=== PATIENT | female | born 1975 | race Caucasian/White ===

== ENCOUNTER 2018-05-30 11:24 | Emergency (ER) | payer MEDICAID ==
[2018-05-30] MEDS ORDERED: TORAdol 30 mg Injection IM ONE (12:08)
--- NOTE | 2018-05-30 12:08 | ERPHSYRPT ---
- History of Present Illness Time Seen by Provider: 05/30/18 12:03 Source: patient, family Exam Limitations: no limitations Patient Subjective Stated Complaint: fell 2 weeks ago onto an outstretched right arm.. pain in right shoulder.. now has pai9n in right rib and shoulder after coughing since yesterday.. prodictve scant amount. no recent injury.. pain with movement and breathing Triage Nursing Assessment: alert and oriented. fell 2 week ago onto a outstretched right arm.. now has pain in right ribs after coughing yesterday.. pain with breathing and movement. lungs clear. denies fever. scant productive cought. denies fever. Physician History: The patient is a 42 year old right-handed female with her complaining of right upper rib pain that began suddenly as she was coughing 2 or 3 days ago. She denies being short of breath. She claims it hurts when she coughs and when she lifts things with her right arm. About 2 weeks ago she fell on her outstretched right arm hurting her right shoulder but not her right ribs. Her right shoulder has been feeling better. She has been taking naproxen to help ease the pain of her ribs but it has not helped much. 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 Timing/Duration: day(s) (3), constant, sudden Cough Quality/Degree: moderate, dry cough Possible Cause: occasional episodes Modifying Factors: Improves With: nothing Associated Symptoms: cough Allergies/Adverse Reactions: erythromycin base Allergy (Unknown, Verified 05/30/18 12:10) Penicillins Allergy (Unknown, Verified 05/30/18 12:10) - Review of Systems Constitutional: No Fever, No Chills Eyes: No Symptoms Ears, Nose, & Throat: No Symptoms Respiratory: Cough Cardiac: Chest Pain (with cough) Abdominal/Gastrointestinal: No Abdominal Pain, No Nausea, No Vomiting, No Diarrhea Genitourinary Symptoms: No Dysuria Musculoskeletal: No Back Pain, No Neck Pain Skin: No Rash Neurological: No Dizziness, No Focal Weakness, No Sensory Changes Psychological: No Symptoms Endocrine: No Symptoms Hematologic/Lymphatic: No Symptoms Immunological/Allergic: No Symptoms All Other Systems: Reviewed and Negative - Past Medical History Pertinent Past Medical History: Yes Respiratory History: Bronchitis, Pneumonia - Past Surgical History Past Surgical History: Yes Gastrointestinal: Cholecystectomy Female Surgical History: Hysterectomy - Social History Smoking Status: Current every day smoker Exposure to second hand smoke: No Drug Use: marijuana Patient Lives Alone: No - Female History Hx Now: No - Nursing Vital Signs Nursing Vital Signs: Initial Vital Signs Temperature 97.9 F 05/30/18 11:41 Pulse Rate 92 H 05/30/18 11:41 Respiratory Rate 18 05/30/18 11:41 Blood Pressure 136/108 05/30/18 11:41 O2 Sat by Pulse Oximetry 99 05/30/18 11:41 Pain Scale Pain Intensity 7 - Physical Exam General Appearance: mild distress Eye Exam: PERRL/EOMI, eyes nml inspection Ears, Nose, Throat Exam: normal ENT inspection, TMs normal, pharynx normal, moist mucous membranes Neck Exam: normal inspection, non-tender, supple, full range of motion Respiratory Exam: normal breath sounds, chest tenderness (upper right anterior ribs) Cardiovascular Exam: regular rate/rhythm, normal heart sounds Gastrointestinal/Abdomen Exam: soft, No tenderness Pelvic Exam: not done Rectal Exam: not done Back Exam: normal inspection, No CVA tenderness, No vertebral tenderness Extremity Exam: normal inspection, normal range of motion Neurologic Exam: alert, oriented x 3, cooperative, normal mood/affect, sensation nml, No motor deficits Skin Exam: normal color, warm, dry, No rash Lymphatic Exam: No adenopathy SpO2 Interpretation: normal SpO2: 99 O2 Delivery: Room Air - Radiology Exams Chest X-ray Interpretation: Reviewed by me, Teleradiologist Report (per Dr Grimm), Negative, No Fracture, No Pneumonia, No Pneumothorax, No Infiltrates Ribs X-ray Interpretation: Reviewed by me, Teleradiologist Report (per Dr Grimm), Negative, No Fracture, No Pneumothorax Ordered Tests: Active Orders 24 hr Category Date Time Status CHEST 2 VIEWS (PA AND LAT) Stat Exams 05/30/18 12:08 Completed RIBS UNILATERAL Stat Exams 05/30/18 12:09 Completed Medication Summary Discontinued Medications Generic Name Dose Route Start Last Admin Trade Name Freq PRN Reason Stop Dose Admin Ketorolac Tromethamine 60 mg 05/30/18 12:08 05/30/18 12:31 Toradol 30 Mg Injection IM 05/30/18 12:09 60 mg STAT ONE Administration Ketorolac Tromethamine Confirm 05/30/18 12:29 Toradol 30 Mg Injection Administered 05/30/18 12:30 Dose 60 mg .ROUTE .STK-MED ONE - Progress Progress: improved Air Movement: good Blood Culture(s) Obtained: No Antibiotics given: No - Departure Time of Disposition: 12:59 Departure Disposition: Home Clinical Impression: Muscle strain of anterior chest wall Condition: Stable Critical Care Time: No Referrals: ELIZABETH NIELSEN MAINTENANCE CHIEF [Primary Care Provider] - Additional Instructions: You have pulled/strained muscles in your right upper chest. You were given Toradol 60 mg by IM in the ER. Your chest x-ray and rib x-rays were normal. Take naproxen 500 mg 2 times a day as needed for pain. You may also take Tylenol 1000 mg every 8 hours in addition to the naproxen. Take Tessalon Perle 100 mg every 8 hours as needed for cough. Follow-up with your primary medical doctor as needed. Prescriptions: Benzonatate [Tessalon Perle] 100 mg PO Q8H PRN PRN #12 capsule PRN Reason: Cough Naproxen 500 mg [Naprosyn 500 MG] 500 mg PO BIDPRN PRN #30 tablet MDD 2 PRN Reason: Pain
[2018-05-30] MEDS ORDERED: TORAdol 30 mg Injection ONE (12:29)
--- NOTE | 2018-05-30 12:47 | XRAY ---
Indication: Pain following fall one week ago. Comparison: None 2 views of the right ribs obtained. No bony, articular, or soft tissue abnormalities.
--- NOTE | 2018-05-30 12:47 | XRAY ---
Indication: Right rib pain following fall one week ago. Comparison: None PA/lateral chest demonstrates normal heart, lungs, and bony thorax.
[2018-05-30 13:22] VITALS: BP 133/101; PULSE 83; O2SAT 96
== END 2018-05-30 13:22 | disposition home or self-care (01) ==
LOC: ED 11:24
DX: S39.011A Strain of muscle, fascia and tendon of abdomen, initial encounter (principal); W18.30XS Fall on same level, unspecified, sequela; R07.89 Other chest pain; Z72.0 Tobacco use; M25.511 Pain in right shoulder
CPT/HCPCS: 71046; 71100; 96372; 99284; J1885

== ENCOUNTER 2019-08-05 13:48 | Emergency (ER) | payer MEDICAID ==
[2019-08-05] MEDS ORDERED: TORAdol 30 mg Injection IV ONE (14:11)
--- NOTE | 2019-08-05 14:19 | ERPHSYRPT ---
- History of Present Illness Time Seen by Provider: 08/05/19 14:00 Source: patient Exam Limitations: no limitations Patient Subjective Stated Complaint: Pt had the flu 06/30 and continues to have a cough that is not as bad as it was but she thinks that she may have cracked a rib from all of the coughing, pain began about 1.5 weeks ago, pain below the right breast that extends to the lateral side, pain does not radiate, pain with palpatation Triage Nursing Assessment: Pt brought self to the ER, hypertensive, clear sputum with cough, rates pain in ribs 6/10, pulses normal, uncomfortable to sleep, denies falling, denies injury, lungs clear equal and clari Physician History: The patient is a 43-year-old female who presents with a chief complaint of right -sided chest pain that is been present for the past week. She states that she suffered from a flulike illness on June 30 which consisted of a cough that reportedly was productive but has since started to resolve. She denies having fever, chills but endorsed having some sinus congestion. The patient denies sore throat, nausea, vomiting, diaphoresis, night sweats, diarrhea as well as constipation. She denies hemoptysis, history of DVT/PE, history of no malignancy, recent immobilization, recent international travel or recent surgeries. She is not taking estrogen supplement. She has a history of opiate abuse and is a recovering addict and states that she has a history of fibromyalgia in addition to a prior right left tibial plateau fracture and left foot and ankle fracture causing her to have chronic swelling of the left lower leg. She has not taken any medications for the pain and last night she reports that she was unable to sleep because whenever she lies on her right side the pain becomes worse. She described the pain as a sharp pain that increases whenever she takes a deep breath that is nonradiating constant. The pain increases with palpation and she states when someone presses on her chest and feels as if she has a "burning sensation." Timing/Duration: week(s) (1) Severity: mild Associated Symptoms: cough, chest pain, No denies symptoms, No nausea, No vomiting, No abdominal pain, No fever, No headaches, No malaise, No rash, No syncope Allergies/Adverse Reactions: erythromycin base Allergy (Unknown, Verified 05/30/18 12:10) Penicillins Allergy (Unknown, Verified 08/05/19 14:06) Travel Risk - International Travel Have you traveled outside of the country in past 3 weeks: No Have you or anyone close to you been diagnosed with or: No Do your reside in a community with a known COVID-19 case?: Yes If Yes where:: [place] - Coronavirus Screening Has patient experienced Coronavirus symptoms: No - Review of Systems Constitutional: No Fever, No Chills Eyes: No Symptoms Ears, Nose, & Throat: No Symptoms, Nose Congestion, No Throat Swelling, No Hoarse Respiratory: Cough, Dyspnea Cardiac: Chest Pain Abdominal/Gastrointestinal: No Symptoms, No Nausea, No Vomiting Genitourinary Symptoms: No Symptoms Skin: No Symptoms Neurological: No Symptoms Psychological: No Symptoms Endocrine: No Symptoms Hematologic/Lymphatic: No Symptoms Immunological/Allergic: No Symptoms All Other Systems: Reviewed and Negative - Past Medical History Pertinent Past Medical History: Yes Respiratory History: Bronchitis, Pneumonia - Past Surgical History Past Surgical History: Yes Gastrointestinal: Cholecystectomy Musculoskeletal: Orthopedic Surgery Female Surgical History: Hysterectomy, Tubal Ligation Other Surgical History: left leg surgery due to a fracture - Social History Smoking Status: Current every day smoker How long have you smoked: 20+ years Exposure to second hand smoke: Yes Drug Use: marijuana Patient Lives Alone: No - Female History Hx Now: No (hysterectomy) - Nursing Vital Signs Nursing Vital Signs: Initial Vital Signs Temperature 98.1 F 08/05/19 13:54 Pulse Rate 81 08/05/19 13:54 Blood Pressure 152/102 08/05/19 13:54 O2 Sat by Pulse Oximetry 99 08/05/19 13:54 Pain Scale Pain Intensity 4 - Physical Exam General Appearance: no apparent distress, alert Eye Exam: PERRL/EOMI Ears, Nose, Throat Exam: normal ENT inspection, pharynx normal, dry mucous membranes, No pharyngeal erythema, No tonsillar exudate Neck Exam: normal inspection, non-tender, supple Respiratory Exam: normal breath sounds, chest tenderness (Tenderness to R axillary region. No evidence of zoster rash), lungs clear, airway intact, No respiratory distress, No accessory muscle use, No pleural rub Cardiovascular Exam: regular rate/rhythm, normal heart sounds, normal peripheral pulses, capillary refill <2 sec, edema (The left lower extermity appeared to be asymmetrically swollen compared to the right, trace edema), No murmur, No friction rub, No gallop Gastrointestinal/Abdomen Exam: soft, No tenderness (Specifically with no RUQ tenderness and negative Larsen), No rebound Pelvic Exam: not done Rectal Exam: deferred Back Exam: normal inspection Extremity Exam: other (The left lower extermity appeared to be asymmetrically swollen compared to the right, trace edema) Neurologic Exam: alert, oriented x 3 Skin Exam: normal color, warm, dry, No rash, No petechiae SpO2 Interpretation: normal SpO2: 99 O2 Delivery: Room Air - Course Nursing assessment & vital signs reviewed: Yes EKG Interpreted by Me: RATE, Sinus Rhythm, NORMAL AXIS, NORMAL INTERVALS, NORMAL QRS, NORMAL ST-T - Radiology Exams Chest X-ray Interpretation: Reviewed by me, Negative Ordered Tests: Active Orders 24 hr Category Date Time Status EKG-ER Only STAT Care 08/05/19 14:10 Active IV Insertion STAT Care 08/05/19 14:10 Active CHEST 2 VIEWS (PA AND LAT) Stat Exams 08/05/19 14:26 Completed BMP Stat Lab 08/05/19 14:15 Completed CBC W DIFF Stat Lab 08/05/19 14:15 Completed D-DIMER QUANTITATIVE Stat Lab 08/05/19 14:15 Completed TROPONIN Stat Lab 08/05/19 14:15 Completed Medication Summary Discontinued Medications Generic Name Dose Route Start Last Admin Trade Name [place] PRN Reason Stop Dose Admin Ketorolac Tromethamine 15 mg 08/05/19 14:11 08/05/19 14:26 Toradol 30 Mg Injection IV 08/05/19 14:12 15 mg STAT ONE Administration Ketorolac Tromethamine Confirm 08/05/19 14:20 Toradol 30 Mg Injection Administered 08/05/19 14:21 Dose 30 mg .ROUTE .[employer]-RemitDATA ONE Lab/Rad Data: Laboratory Result Diagrams 08/05/19 14:15 08/05/19 14:15 Laboratory Results 08/05/19 08/05/19 08/05/19 Range/Units 14:15 14:15 14:15 WBC 9.3 (4.0-10.5) K/mm3 RBC 4.89 (4.1-5.4) M/mm3 Hgb 14.7 (12.0-16.0) gm/dl Hct 43.6 (35-47) % MCV 89.2 (78-100) fl MCH 30.1 (26-32) pg MCHC 33.7 (32-36) g/dl RDW 13.7 (11.5-14.0) % Plt Count 243 (150-450) K/mm3 MPV 11.0 (7.5-11.0) fl Gran % 50.2 (36.0-66.0) % Eos # (Auto) 0.22 (0-0.5) Absolute Lymphs (auto) 3.62 (1.0-4.6) Absolute Monos (auto) 0.74 (0.0-1.3) Lymphocytes % 39.1 (24.0-44.0) % Monocytes % 8.0 (0.0-12.0) % Eosinophils % 2.4 (0.00-5.0) % Basophils % 0.3 (0.0-0.4) % Absolute Granulocytes 4.64 (1.4-6.9) Basophils # 0.03 (0-0.4) D-Dimer < 215 L (215-500) ng/mL Sodium 143 (137-145) mmol/L Potassium 3.6 (3.5-5.1) mmol/L Chloride 108 H (98-107) mmol/L Carbon Dioxide 27 (22-30) mmol/L Anion Gap 11.7 (5-15) MEQ/L BUN 9 (7-17) mg/dL Creatinine 0.54 (0.52-1.04) mg/dL Estimated GFR > 60.0 ML/MIN Glucose 97 (74-106) mg/dL Calcium 9.4 (8.4-10.2) mg/dL Troponin I < 0.012 (0.000-0.034) ng/mL - Progress Progress: improved, re-examined Progress Note: 08/05/19 15:03 Assess the patient to find that she endorsed a little bit relief with Toradol. I updated her with her laboratory results and chest x-ray results. I currently think the patient is either suffering from a pulled chest wall muscle, pleurisy or possibly could have zoster without evidence of the rash however I feel this is very unlikely at this time. Only have a low gestalt for a pulmonary realism and given her low Wells score and a d-dimer that is on the limits my suspicion for a pulmonary embolism is low and I will defer CTA of her chest at this time. Only have a low suspicion for any ACS equivalent as well. Chest x-ray was ordered to rule out evidence of pneumothorax, pneumonia, pleural effusion and ultimately was negative for such and relatively benign. She will be discharged home with instructions to take ibuprofen scheduled and she was instructed to take ibuprofen with food. I also offered her lidocaine patches to use as a trial for pain relief. Otherwise, she was instructed to follow-up with her primary care provider as needed. She agreed with and verbally understood the discharge plan. Counseled pt/family regarding: lab results, diagnosis, need for follow-up, rad results - Departure Departure Disposition: Home Clinical Impression: Chest wall pain Condition: Good Critical Care Time: No Referrals: ELIZABETH NIELSEN PHYSICAL EDUCATION DEPARTMENT CHAIR [Primary Care Provider] - Instructions: Chest Pain That Is Not Caused by the Heart (DC) Prescriptions: Ibuprofen 400 mg PO Q6-8HPRN PRN #120 tablet PRN Reason: Pain And/Or Fever Lidocaine [Lidoderm] 1 each TP DAILY PRN PRN #20 adh..patch PRN Reason: Pain
[2019-08-05] MEDS ORDERED: TORAdol 30 mg Injection ONE (14:20)
[2019-08-05 14:27] LABS: Absolute Neutrophil Ct (ANC) 4.64 (1.4-6.9); BASOPHIL % 0.3 % (0.0-0.4); Basophil (Absolute #) 0.03 (0-0.4); Eosinophil % 2.4 % (0.00-5.0); Eosinophil (Absolute #) 0.22 (0-0.5); Hematocrit 43.6 % (35-47); Hemoglobin 14.7 gm/dl (12.0-16.0); Lymphocyte (Absolute #) 3.62 (1.0-4.6); Lymphocytes % 39.1 % (24.0-44.0); Mean Cell Volume 89.2 fl (78-100); Mean Corpuscular Hemoglobin 30.1 pg (26-32); Mean Corpuscular Hgb Concent. 33.7 g/dl (32-36); Monocyte (Absolute #) 0.74 (0.0-1.3); Neutrophil % 50.2 % (36.0-66.0); Platelet Count 243 K/mm3 (150-450); Red Blood Count 4.89 M/mm3 (4.1-5.4); Red Cell Distribution Width 13.7 % (11.5-14.0); White Blood Count 9.3 K/mm3 (4.0-10.5)
--- NOTE | 2019-08-05 14:39 | XRAY ---
Indication: Cough. Right-sided rib pain. Comparison: May 30, 2018. PA/lateral chest remains clear. Heart and mediastinal structures within normal limits. Bony thorax intact. Impression: Continued nonacute chest.
[2019-08-05 14:48] LABS: ANION GAP 11.7 MEQ/L (5-15); BLOOD UREA NITROGEN 9 mg/dL (7-17); CHLORIDE 108 mmol/L (98-107); Calcium 9.4 mg/dL (8.4-10.2); Carbon Dioxide 27 mmol/L (22-30); Creatinine 1 0.54 mg/dL (0.52-1.04); Glucose 97 mg/dL (74-106); Potassium 3.6 mmol/L (3.5-5.1); SODIUM 143 mmol/L (137-145)
[2019-08-05 14:49] LABS: TROPONIN < 0.012 ng/mL (0.000-0.034)
[2019-08-05 15:08] VITALS: BP 165/111; PULSE 73
[2019-08-05 15:10] VITALS: O2SAT 99
== END 2019-08-05 15:28 | disposition home or self-care (01) ==
LOC: ED 13:48
DX: R07.89 Other chest pain (principal); R05 Cough
CPT/HCPCS: 36000; 36415; 71046; 80048; 84484; 85025; 85379; 93005; 96374; 99284; J1885

== ENCOUNTER 2020-07-25 13:27 | Emergency (ER) | payer SELFPAY ==
--- NOTE | 2020-07-25 13:50 | ERPHSYRPT ---
- History of Present Illness Time Seen by Provider: 07/25/20 13:47 Source: patient Exam Limitations: no limitations Patient Subjective Stated Complaint: Foot injury-nail in foot Triage Nursing Assessment: Patient ambulated back to ED and transferred self to bed. Patient A+O X3. Patient's skin pink, warm and dry. Patient states yesterday around 1730 she was walking in flip flops and stepped on a board with a nail in it. Patient states the nail punctured her left foot. Patient denies pain or discomfort. Small puncture wound noted to left foot heel area. Physician History: Foot injury-nail in left foot. Patient states yesterday around 1730 she was walking in flip flops and stepped on a board with a nail in it. Patient states the nail punctured her left foot. Patient denies pain or discomfort. Small puncture wound noted to left foot heel area. Method of Injury: other Occurred: yesterday Quality: constant Severity of Pain-Max: mild Severity of Pain-Current: moderate Lower Extremities Pain: heel: left Allergies/Adverse Reactions: erythromycin base Allergy (Unknown, Verified 07/25/20 13:31) Penicillins Allergy (Unknown, Verified 07/25/20 13:31) Hx Tetanus, Diphtheria Vaccination/Date Given: (2007) Immunizations Up to Date: Yes Travel Risk - International Travel Have you traveled outside of the country in past 3 weeks: No - Coronavirus Screening Are you exhibiting any of the following symptoms?: No Close contact with a COVID-19 positive Pt in past 14-21 Days: No - Review of Systems Constitutional: No Symptoms Eyes: No Symptoms Ears, Nose, & Throat: No Symptoms Respiratory: No Symptoms Cardiac: No Symptoms Abdominal/Gastrointestinal: No Symptoms Genitourinary Symptoms: No Symptoms Musculoskeletal: Other (left heel nail injury) Neurological: No Symptoms Psychological: No Symptoms - Past Medical History Pertinent Past Medical History: Yes Respiratory History: Bronchitis, Pneumonia Psycho-Social History: Depression Other Medical History: fibromyaglia - Past Surgical History Past Surgical History: Yes Gastrointestinal: Cholecystectomy Musculoskeletal: Orthopedic Surgery Female Surgical History: Hysterectomy, Tubal Ligation Other Surgical History: left leg and foot surgery due to a fracture - Social History Smoking Status: Current every day smoker How long have you smoked: years Exposure to second hand smoke: No Drug Use: marijuana Patient Lives Alone: No - Female History Hx Last Menstrual Period: hysterctomy Hx Now: No - Nursing Vital Signs Nursing Vital Signs: Initial Vital Signs Temperature 98.4 F 07/25/20 13:32 Pulse Rate 91 H 07/25/20 13:32 Respiratory Rate 18 07/25/20 13:32 Blood Pressure 184/124 07/25/20 13:32 O2 Sat by Pulse Oximetry 100 07/25/20 13:32 Pain Scale Pain Intensity 3 - Physical Exam General Appearance: no apparent distress Eyes, Ears, Nose, Throat Exam: normal ENT inspection Neck Exam: normal inspection Cardiovascular/Respiratory Exam: chest non-tender Back Exam: normal inspection Hips Exam: bilateral: non-tender Legs Exam: bilateral leg: non-tender Knees Exam: bilateral knee: non-tender Ankle Exam: bilateral ankle: non-tender Foot Exam: left foot: soft tissue tenderness (heel), swelling SpO2: 100 - Course Nursing assessment & vital signs reviewed: Yes - Radiology Exams Foot X-ray Interpretation: Reviewed by me Ordered Tests: Active Orders 24 hr Category Date Time Status FOOT (MINIMUM 3 VIEWS) Stat Exams 07/25/20 13:47 Taken Medication Summary Discontinued Medications Generic Name Dose Route Start Last Admin Trade Name Freq PRN Reason Stop Dose Admin Diphtheria/Tetanus/Acell Pertussis 0.5 ml 07/25/20 14:15 07/25/20 14:23 Adacel Vial IM 07/25/20 14:16 0.5 ml .ONCE ONE Administration Diphtheria/Tetanus/Acell Pertussis Confirm 07/25/20 14:17 Adacel Vial Administered 07/25/20 14:18 Dose 0.5 ml IM .STK-MED ONE Ketorolac Tromethamine 60 mg 07/25/20 14:11 07/25/20 14:20 Toradol 30 Mg Injection IM 07/25/20 14:12 60 mg STAT ONE Administration Ketorolac Tromethamine Confirm 07/25/20 14:14 Toradol 30 Mg Injection Administered 07/25/20 14:15 Dose 60 mg .ROUTE .STK-MED ONE - Progress Progress: improved Counseled pt/family regarding: diagnosis, need for follow-up, rad results - Departure Departure Disposition: Home Clinical Impression: Crushing injury of left heel Qualifiers: Encounter type: initial encounter Qualified Code(s): S97.82XA - Crushing injury of left foot, initial encounter Hypertension Qualifiers: Hypertension type: essential hypertension Qualified Code(s): I10 - Essential (primary) hypertension Condition: Stable Critical Care Time: No Referrals: DOCTOR,NO FAMILY [Primary Care Provider] - Instructions: Contusion (DC) Additional Instructions: Discharge/Care Plan EILEEN JOLLEY was seen on 07/25/20 in the Emergency Room. The patient was counseled regarding Diagnosis,Lab results, Imaging studies, need for follow up and when to return to the Emergency Room. Prescriptions given: Discharge Note I have spoken with the patient and/or caregivers. I have explained the patient's condition, diagnosis and treatment plan based on the information available to me at this time. I have answered the patient's and/or caregiver's questions and addressed any concerns. The patient and/or caregivers have as good understanding of the patient's diagnosis, condition and treatment plan as can be expected at this point. The vital signs have been stable. The patient's condition is stable and appropriate for discharge from the emergency department. The patient will pursue further outpatient evaluation with the primary care physician or other designated or consulting physician as outlined in the discharge instructions. The patient and/or caregivers are agreeable to this plan of care and follow-up instructions have been explained in detail. The patient and/or caregivers have received these instruction. The patient/and or caregivers are aware that any significant change in condition or worsening of symptoms should prompt an immediate return to this or the closest emergency department or call 911. Take 600 mg Ibuprofen with food three times a day for 3 days Prescriptions: Lisinopril/Hydrochlorothiazide [Lisinopril-Hctz 10-12.5 mg Tab] 1 each PO QAM #30 tablet
[2020-07-25] MEDS ORDERED: TORAdol 30 mg Injection ONE (14:14)
[2020-07-25] MEDS ORDERED: Adacel Vial IM ONE (14:17)
[2020-07-25] MEDS: TORAdol 30 mg Injection IM ONE (14:20)
[2020-07-25] MEDS: Adacel Vial IM ONE (14:23)
[2020-07-25] MEDS: Zestril 20 MG*** 20 MG, hydroDIURIL 25 MG*** 25 MG PO STA ×2 (14:46)
[2020-07-25 14:54] VITALS: BP 161/102; PULSE 86; O2SAT 98
--- NOTE | 2020-07-25 18:37 | XRAY ---
Indication: Heel injury. Stepped on nail. Comparison: None 3 nonweightbearing views left foot negative for radiopaque foreign body. Incidental small talonavicular accessory ossicle. No other bony, articular, or soft tissue abnormalities.
== END 2020-07-25 14:55 | disposition home or self-care (01) ==
LOC: ED 13:27
DX: S91.332A Puncture wound without foreign body, left foot, initial encounter (principal); W45.0XXA Nail entering through skin, initial encounter; I10 Essential (primary) hypertension
CPT/HCPCS: 73630; 90471; 90715; 96372; 99284; J1885; A9270-GY

== ENCOUNTER 2022-02-10 11:50 | Emergency (ER) | payer OTHER ==
[2022-02-10] MEDS ORDERED: XYLOCAINE 1% HCL 20 ML MDV ONE (12:04)
[2022-02-10] MEDS ORDERED: XYLOCAINE 1% HCL 20 ML MDV IJ ONE (12:06)
[2022-02-10] MEDS ORDERED: BACIGUENT PACKET ONE (12:23)
[2022-02-10] MEDS ORDERED: BACIGUENT PACKET TP ONE (12:23)
--- NOTE | 2022-02-10 12:32 | ERPHSYRPT ---
- History of Present Illness Source: patient Exam Limitations: no limitations Patient Subjective Stated Complaint: C/O laceration to right ankle. Patient states she hit it on the corner of an old, wooden, garage door. Injury just occurred prior to coming into the ED today. Triage Nursing Assessment: Patient came back to ED in a w/c with her right ankle wrapped in a dry dressing. Dressing removed. An upside down "v" shaped laceration noted to right outer ankle. Skin flap is folder under itself with the outer side of the laceration measuring 2.7cm and the inner side of the laceration measuring 2cm. No active bleeding noted. Physician History: 46 yo wf w R skin avulsion inferior to lateral malleolus after hitting it on her garage door. Pt is UTD on her Tetanus. She denies other/previous injuries. Lac is 3cm. Good hemostasis and no evidence of tendon/vascular injury. Method of Injury: direct blow Occurred: just prior to arrival Quality: constant Severity of Pain-Max: moderate Severity of Pain-Current: mild Lower Extremities Pain: foot: right Modifying Factors: Improves With: nothing, movement Associated Symptoms: none Allergies/Adverse Reactions: erythromycin base Allergy (Unknown, Verified 02/10/22 12:00) Penicillins Allergy (Unknown, Verified 02/10/22 12:00) Home Medications: Atorvastatin Calcium [Lipitor] 1 tab PO DAILY 02/10/22 [History] Bupropion HCl Xl 150 mg [Wellbutrin XL 150 MG] 300 mg PO DAILY 02/10/22 [History] Hx Tetanus, Diphtheria Vaccination/Date Given: Yes (07/25/20 (tetanus)) Hx Influenza Vaccination/Date Given: No Hx Pneumococcal Vaccination/Date Given: No Immunizations Up to Date: Yes Travel Risk - International Travel Have you traveled outside of the country in past 3 weeks: No - Coronavirus Screening Are you exhibiting any of the following symptoms?: No Close contact with a COVID-19 positive Pt in past 14-21 Days: No - Vaccine Status Have you recieved a Covid-19 vaccination: No - Review of Systems Constitutional: No Symptoms Eyes: No Symptoms Ears, Nose, & Throat: No Symptoms Respiratory: No Symptoms Cardiac: No Symptoms Abdominal/Gastrointestinal: No Symptoms Genitourinary Symptoms: No Symptoms Skin: No Symptoms Neurological: No Symptoms Psychological: No Symptoms Endocrine: No Symptoms Hematologic/Lymphatic: No Symptoms Immunological/Allergic: No Symptoms - Past Medical History Pertinent Past Medical History: Yes Respiratory History: Bronchitis, Pneumonia Psycho-Social History: Depression Other Medical History: fibromyaglia - Past Surgical History Past Surgical History: Yes Gastrointestinal: Cholecystectomy Musculoskeletal: Orthopedic Surgery Female Surgical History: Hysterectomy, Tubal Ligation Other Surgical History: left leg and foot surgery due to a fracture - Social History Smoking Status: Current every day smoker How long have you smoked: years Exposure to second hand smoke: No Drug Use: marijuana Patient Lives Alone: No - Female History Hx Now: No - Nursing Vital Signs Nursing Vital Signs: Initial Vital Signs Temperature 98 F 02/10/22 12:03 Pulse Rate 77 02/10/22 12:03 Respiratory Rate 18 02/10/22 12:03 Blood Pressure 187/106 02/10/22 12:03 O2 Sat by Pulse Oximetry 100 02/10/22 12:03 Pain Scale Pain Intensity 6 Hypertensive - Physical Exam General Appearance: no apparent distress Eyes, Ears, Nose, Throat Exam: normal ENT inspection Neck Exam: normal inspection, non-tender, supple, full range of motion, No Brudzinski, No Kernig's, No meningismus Cardiovascular/Respiratory Exam: normal breath sounds, regular rate/rhythm, heart sounds normal Gastrointestinal/Abdominal Exam: non-tender, soft Back Exam: normal inspection, normal range of motion, No CVA tenderness, No vertebral tenderness Hips Exam: bilateral: non-tender, normal inspection, normal range of motion, no evidence of injury Legs Exam: bilateral leg: non-tender, normal inspection, normal range of motion, no evidence of injury Knees Exam: bilateral knee: non-tender, normal inspection, normal range of motion, no evidence of injury Ankle Exam: bilateral ankle: non-tender, normal inspection, normal range of motion, no evidence of injury Foot Exam: right foot: other (3cm avulsion inferior to lateral malleolus/Good hemostasis/Good pedal pulse, distal sensation, and capillary return) DTR - Lower Extremities Exam: knee (R): 2+, knee (L): 2+ Neuro/Tendon Exam: normal sensation, normal motor functions, normal tendon functions, responds to pain, no evidence tendon injury, No motor deficit, No sensory deficit Mental Status Exam: alert, oriented x 3, cooperative Skin Exam: normal color, warm, dry SpO2 Interpretation: normal SpO2: 100 O2 Delivery: Room Air Procedures - Laceration/Wound Repair Right Lateral Foot Time of Procedure: 12:19 Wound Location: Left, foot Wound Length (cm): 3 Wound's Depth, Shape: flap Wound Explored: clean Irrigated: No Hibiclens Prep: Yes Anesthesia: local, 1% Lidocaine Volume Anesthetic (ccs): 10 Wound Repaired With: sutures Suture Size/Type: 4-0, ethilon Number of Sutures: 8 Layer Closure?: No - Course Nursing assessment & vital signs reviewed: Yes Ordered Tests: Active Orders 24 hr Category Date Time Status Wound Care STAT Care 02/10/22 12:23 Completed Medication Summary Discontinued Medications Generic Name Dose Route Start Last Admin Trade Name Freq PRN Reason Stop Dose Admin Bacitracin Zinc 0.9 each 02/10/22 12:23 02/10/22 12:24 Bacitracin Packet 1 Each Pckt TP 02/10/22 12:24 0.9 each STAT ONE Administration Bacitracin Zinc Confirm 02/10/22 12:23 Bacitracin Packet 1 Each Pckt Administered 02/10/22 12:24 Dose 1 each .ROUTE .STK-MED ONE Lidocaine HCl Confirm 02/10/22 12:04 Lidocaine Hcl 1% 20 Ml Mdv 20 Ml Ml Administered 02/10/22 12:05 Dose 5 ml .ROUTE .STK-MED ONE Lidocaine HCl 5 ml 02/10/22 12:06 02/10/22 12:06 Lidocaine Hcl 1% 20 Ml Mdv 20 Ml Ml IJ 02/10/22 12:07 5 ml STAT ONE Administration - Progress Progress: improved Counseled pt/family regarding: diagnosis, need for follow-up - Departure Departure Disposition: Home Clinical Impression: Laceration Condition: Stable Critical Care Time: No Referrals: DOCTOR,NO FAMILY [Primary Care Provider] - Follow up/PCP as directed Instructions: Wound Care (DC), Laceration Repair With Stitches (DC) Additional Instructions: Keep laceration dry for 3 days, then wash 1-2 times a day gently with soap/water Sutures out in 10 days Watch for signs of infection-Increasing redness/Increasing pain/Any pus/Temperature greater than 100.5 Start Keflex three times a day for 1 week Prescriptions: Cephalexin Mh 500 mg [Keflex 500 mg] 500 mg PO TID 7 Days #21 cap
[2022-02-10 12:44] VITALS: BP 159/84; PULSE 72
[2022-02-10 14:50] VITALS: O2SAT 100
== END 2022-02-10 12:45 | disposition home or self-care (01) ==
LOC: ED 11:50
DX: S91.311A Laceration without foreign body, right foot, initial encounter (principal); M79.671 Pain in right foot; Z79.899 Other long term (current) drug therapy; Z72.0 Tobacco use; Z20.828 Contact with and (suspected) exposure to other viral communicable diseases
CPT/HCPCS: 96372; 99283; A9270-GY

== ENCOUNTER 2022-08-26 11:39 | Emergency (ER) | payer OTHER ==
[2022-08-26] MEDS ORDERED: TRANDATE 20 MG/4 ML SYRINGE IV ONE ×2 (12:21→12:32)
--- NOTE | 2022-08-26 12:35 | ERPHSYRPT ---
- History of Present Illness Time Seen by Provider: 08/26/22 12:33 Source: patient Exam Limitations: no limitations Patient Subjective Stated Complaint: pt here for htn since yesterday Triage Nursing Assessment: pt alert, anxious, crying at times. resp easy, skin w/d/p.no edema noted, pain to right side of chest and arm at times Physician History: Patient is 46-year-old female with significant past medical history of fibromyalgia also has a history of high blood pressure in the past but has not been taking any medication recently because according to her her blood pressure has been running within normal range. She started having some headache and some type of feeling uneasiness and anxiety so she checked her blood pressure and which was found to be high so she came to the emergency room and emergency room her blood pressure was 160/100. Patient was complaining of somewhat anxiety but denies any headache she was complaining of right-sided chest wall pain but denies any shortness of breath. Patient denies any strong family history of heart disease or also denies any personal history of heart disease. Patient does smoke around 1 pack a day. Timing/Duration: today Associated Symptoms: denies symptoms Allergies/Adverse Reactions: erythromycin base Allergy (Unknown, Verified 08/26/22 12:03) Penicillins Allergy (Unknown, Verified 08/26/22 12:03) Home Medications: Bupropion HCl Xl 150 mg [Wellbutrin XL 150 MG] 300 mg PO DAILY 02/10/22 [History] Hx Tetanus, Diphtheria Vaccination/Date Given: No Hx Influenza Vaccination/Date Given: No Hx Pneumococcal Vaccination/Date Given: No Immunizations Up to Date: Yes Travel Risk - International Travel Have you traveled outside of the country in past 3 weeks: No - Coronavirus Screening Are you exhibiting any of the following symptoms?: No Close contact with a COVID-19 positive Pt in past 14-21 Days: No - Vaccine Status Have you recieved a Covid-19 vaccination: No - Review of Systems Constitutional: No Fever, No Chills Eyes: No Symptoms Ears, Nose, & Throat: No Symptoms Respiratory: No Cough, No Dyspnea Cardiac: Chest Pain, No Edema, No Syncope Abdominal/Gastrointestinal: No Abdominal Pain, No Nausea, No Vomiting, No Diarrhea Genitourinary Symptoms: No Dysuria Musculoskeletal: No Back Pain, No Neck Pain Skin: No Rash Neurological: No Dizziness, No Focal Weakness, No Sensory Changes Psychological: No Symptoms Endocrine: No Symptoms All Other Systems: Reviewed and Negative - Past Medical History Pertinent Past Medical History: Yes Respiratory History: Bronchitis, Pneumonia Psycho-Social History: Anxiety Other Medical History: fibromyaglia - Past Surgical History Past Surgical History: Yes Gastrointestinal: Cholecystectomy Musculoskeletal: Orthopedic Surgery Female Surgical History: Hysterectomy Other Surgical History: left knee - Social History Smoking Status: Current every day smoker How long have you smoked: years Exposure to second hand smoke: Yes Drug Use: marijuana Patient Lives Alone: No - Female History Hx Last Menstrual Period: post Hx Now: No - Nursing Vital Signs Nursing Vital Signs: Initial Vital Signs Temperature 97.2 F 08/26/22 11:55 Pulse Rate 71 08/26/22 11:55 Respiratory Rate 20 08/26/22 11:55 Blood Pressure 177/122 08/26/22 11:55 O2 Sat by Pulse Oximetry 97 08/26/22 11:55 Pain Scale Pain Intensity 4 - Physical Exam General Appearance: no apparent distress, alert Eye Exam: PERRL/EOMI, eyes nml inspection Ears, Nose, Throat Exam: normal ENT inspection, TMs normal, pharynx normal, moist mucous membranes Neck Exam: normal inspection, non-tender, supple, full range of motion Respiratory Exam: normal breath sounds, lungs clear, No respiratory distress Cardiovascular Exam: regular rate/rhythm, normal heart sounds, normal peripheral pulses Gastrointestinal/Abdomen Exam: soft, normal bowel sounds, No tenderness, No mass Back Exam: normal inspection, normal range of motion, No CVA tenderness, No vertebral tenderness Extremity Exam: normal inspection, normal range of motion, pelvis stable Neurologic Exam: alert, oriented x 3, cooperative, normal mood/affect, nml cerebellar function, nml station & gait, sensation nml, No motor deficits Skin Exam: normal color, warm, dry, No rash Lymphatic Exam: No adenopathy SpO2: 97 - Course Nursing assessment & vital signs reviewed: Yes Ordered Tests: Active Orders 24 hr Category Date Time Status EKG-ER Only STAT Care 08/26/22 12:36 Active CBC W DIFF Stat Lab 08/26/22 12:35 Completed CMP Stat Lab 08/26/22 12:51 Received TROPONIN Stat Lab 08/26/22 12:51 Received Medication Summary Discontinued Medications Generic Name Dose Route Start Last Admin Trade Name Freq PRN Reason Stop Dose Admin Labetalol HCl 10 mg 08/26/22 12:21 08/26/22 12:33 Labetalol Hcl 20 Mg/4 Ml Disp.Syringe IV 08/26/22 12:22 10 mg STAT ONE Administration Labetalol HCl Confirm 08/26/22 12:32 Labetalol Hcl 20 Mg/4 Ml Disp.Syringe Administered 08/26/22 12:33 Dose 20 mg IV .STK-MED ONE Lab/Rad Data: Laboratory Result Diagrams 08/26/22 12:35 Laboratory Results 08/26/22 Range/Units 12:35 WBC 6.9 (4.0-10.5) x10^3/uL RBC 5.05 (4.1-5.4) x10^6/uL Hgb 14.9 (12.0-16.0) g/dL Hct 44.9 (35-47) % MCV 88.9 (78-100) fL MCH 29.5 (26-32) pg MCHC 33.2 (32-36) g/dL RDW 12.8 (11.5-14.0) % Plt Count 240 (150-450) x10^3/uL MPV 10.8 (7.5-11.0) fL Gran % 49.5 (36.0-66.0) % Immature Gran % (Auto) 0.3 (0.00-0.4) % Nucleat RBC Rel Count 0.0 (0.00-0.1) % Eos # (Auto) 0.23 (0-0.5) x10^3/uL Immature Gran # (Auto) 0.02 (0.00-0.03) x10^3u/L Absolute Lymphs (auto) 2.69 (1.0-4.6) x10^3/uL Absolute Monos (auto) 0.52 (0.0-1.3) x10^3/uL Absolute Nucleated RBC 0.00 (0.00-0.01) x10^3u/L Lymphocytes % 38.8 (24.0-44.0) % Monocytes % 7.5 (0.0-12.0) % Eosinophils % 3.3 (0.00-5.0) % Basophils % 0.6 (0.0-0.4) % Absolute Granulocytes 3.43 (1.4-6.9) x10^3/uL Basophils # 0.04 (0-0.4) x10^3/uL - Progress Progress: improved Progress Note: 08/26/22 13:14 Patient blood pressure did come down to 150/100 patient is feeling much better. Patient is informed about regular checking blood pressure at home. Patient is advised to take her blood pressure medicine which is prescribed in ER once a day every morning. Patient is also advised to follow-up with the primary care physician for further management of her blood pressure. Counseled pt/family regarding: lab results, diagnosis, need for follow-up, smoking cessation Medical Desision Making - Discussion of managment Agreed on:: Treatment plan, need for follow-up - Diagnostic Testing Diagnostic test were ordered, analyzed, and reviewed by me: Yes - Risk of complications The pt has a mod risk of morbidity or mortality based on: Need for prescription drug management - Departure Departure Disposition: Home Clinical Impression: Hypertension Qualifiers: Hypertension type: primary hypertension Qualified Code(s): I10 - Essential (primary) hypertension Condition: Stable Critical Care Time: Yes Critical Care Time(excluding separately billable procedures): Critical 30-74 mins Referrals: DOCTOR,NO FAMILY [Primary Care Provider] - Follow up/PCP as directed Instructions: Malignant Hypertension (DC), High Blood Pressure in Adults, DASH Diet, High Blood Pressure (DC), Medicines for High Blood Pressure, Dealing with Low Blood Pressure from the Drugs You Take, Checking Your Blood Pressure at Home, How to Keep Track of Your Heart Rate and Blood Pressure Additional Instructions: Discharge/Care Plan SHOLAEILEEN TINEO was seen on 08/26/22 in the Emergency Room. The patient was counseled regarding Diagnosis,Lab results, Imaging studies, need for follow up and when to return to the Emergency Room. Prescriptions given: Discharge Note I have spoken with the patient and/or caregivers. I have explained the patient's condition, diagnosis and treatment plan based on the information available to me at this time. I have answered the patient's and/or caregiver's questions and addressed any concerns. The patient and/or caregivers have as good understanding of the patient's diagnosis, condition and treatment plan as can be expected at this point. The vital signs have been stable. The patient's condition is stable and appropriate for discharge from the emergency department. The patient will pursue further outpatient evaluation with the primary care physician or other designated or consulting physician as outlined in the d ischarge instructions. The patient and/or caregivers are agreeable to this plan of care and follow-up instructions have been explained in detail. The patient and/or caregivers have received these instruction. The patient/and or caregivers are aware that any significant change in condition or worsening of symptoms should prompt an immediate return to this or the closest emergency department or call 911. EILEEN JOLLEY was seen on 08/26/22 n the Emergency Room. At that time you were treated for an emergent condition, during your visit Laboratory, Radiology and/or other procedures may have been ordered. It is very important that you follow-up with your Primary Care Physician NO FAMILY DOCTOR within the next 24- 48 hours to review your Emergency Room visit and the final results of testing that was ordered. Some test results such as Urine Cultures, Blood Cultures, and other cultures if ordered will not be finalized for 24-48 hours. If you do not have a Primary Care Provider please call the medical records d [facility] at [phone] ext [phone] to obtain a copy of your results or you may sign into our patient portal to obtain these results by visiting us @ [email or web address] and completing the following steps: 1. Click on the Patient Portal link 2. Click the Patient Self Enrollment Link to complete the enrollment form and entering your 3. Once the enrollment form is completed you will receive an email with a temporary ID and password at the email address you provided. 4. Next choose a user name and password. Your user name must be at least 4 characters long and your password must be at least 4 characters long. 5. Choose a security question from the list and provide your answer to the question. If you already have signed into the Health Portal you may access your Health Care Information 20/11 by the following steps: 1. Login to our website @ [email or web address] 2. Enter your original user name and password. FAQS The [facility] Health Portal is an online tool that contains your Lab Results, Radiology Reports, Visit History, Discharge Instructions and Health Summary Lab and Radiology Results will not be available for 72 hours on the portal. The Portal is a secure site, passwords are encryted and URLs are re-written so they cannot be copied and pasted. You and authorized family members are the only ones who can access your Portal. Also there is a timeout feature that protects your information if you leave the Portal page open. If you have technical difficulty please use the Contact Us link on the page this will allow you to submit any questions you have regarding the Portal or you may contact the Medical Record Department at [phone] ext [phone]. Prescriptions: Lisinopril/Hydrochlorothiazide [Lisinopril-Hctz 10-12.5 mg Tab] 1 each PO QAM #30 tablet
[2022-08-26 12:50] LABS: Absolute Neutrophil Ct (ANC) 3.43 x10^3/uL (1.4-6.9); BASOPHIL % 0.6 % (0.0-0.4); Basophil (Absolute #) 0.04 x10^3/uL (0-0.4); Eosinophil % 3.3 % (0.00-5.0); Eosinophil (Absolute #) 0.23 x10^3/uL (0-0.5); Hematocrit 44.9 % (35-47); Hemoglobin 14.9 g/dL (12.0-16.0); IMMATURE GRAN # 0.02 x10^3u/L (0.00-0.03); IMMATURE GRAN % 0.3 % (0.00-0.4); Lymphocyte (Absolute #) 2.69 x10^3/uL (1.0-4.6); Lymphocytes % 38.8 % (24.0-44.0); Mean Cell Volume 88.9 fL (78-100); Mean Corpuscular Hemoglobin 29.5 pg (26-32); Mean Corpuscular Hgb Concent. 33.2 g/dL (32-36); Mean Platelet Volume 10.8 fL (7.5-11.0); Monocyte (Absolute #) 0.52 x10^3/uL (0.0-1.3); Monocytes % 7.5 % (0.0-12.0); Neutrophil % 49.5 % (36.0-66.0); Platelet Count 240 x10^3/uL (150-450); Red Blood Count 5.05 x10^6/uL (4.1-5.4); Red Cell Distribution Width 12.8 % (11.5-14.0); White Blood Count 6.9 x10^3/uL (4.0-10.5)
[2022-08-26] MEDS ORDERED: Zestril 20 MG*** 20 MG, hydroDIURIL 25 MG*** 12.5 MG PO STA ×2 (13:13)
[2022-08-26 13:32] LABS: ALBUMIN 4.2 g/dL (3.5-5.0); ALKALINE PHOSPHATASE 87 U/L (38-126); ANION GAP 13.9 MEQ/L (5-15); BLOOD UREA NITROGEN 8 mg/dL (7-17); CHLORIDE 107 mmol/L (98-107); Calcium 8.5 mg/dL (8.4-10.2); Carbon Dioxide 26 mmol/L (22-30); Creatinine 1 0.58 mg/dL (0.52-1.04); EST GLOMERULAR FILTRATION RATE > 60.0 ML/MIN; Glucose 111 mg/dL (74-106); Potassium 3.7 mmol/L (3.5-5.1); SGOT/AST 21 U/L (14-36); SGPT/ALT 20 U/L (0-35); SODIUM 143 mmol/L (137-145); TROPONIN < 0.012 ng/mL (0.000-0.034); Total Protein 7.1 g/dL (6.3-8.2)
[2022-08-26 13:55] VITALS: BP 151/100; PULSE 88; O2SAT 96
== END 2022-08-26 13:56 | disposition home or self-care (01) ==
LOC: ED 11:39
DX: I10 Essential (primary) hypertension (principal); R07.9 Chest pain, unspecified; R51.9 Headache, unspecified; Z79.899 Other long term (current) drug therapy; Z28.310 Unvaccinated for COVID-19; Z72.0 Tobacco use
CPT/HCPCS: 36415; 80053; 84484; 85025; 93005; 96374; 99283; 99291; A9270-GY

== ENCOUNTER 2022-10-23 00:51 | Observation (INO) | payer OTHER ==
[2022-10-23] MEDS ORDERED: MORPHINE SULFATE 2 MG INJ IV ONE (01:29)
[2022-10-23] MEDS ORDERED: Sodium Chloride 0.9% 1000 ML 1,000 ML IV STA ×2 (01:29→03:37)
[2022-10-23] MEDS ORDERED: MORPHINE SULFATE 2 MG INJ ONE (01:35)
[2022-10-23] MEDS ORDERED: Sodium Chloride 0.9% 1000 ML 1,000 ML ONE ×2 (01:35→03:38)
[2022-10-23 01:42] LABS: Hematocrit 41.3 % (35-47); Hemoglobin 13.9 g/dL (12.0-16.0); Mean Cell Volume 88.1 fL (78-100); Mean Corpuscular Hemoglobin 29.6 pg (26-32); Mean Corpuscular Hgb Concent. 33.7 g/dL (32-36); Mean Platelet Volume 10.3 fL (7.5-11.0); Platelet Count 334 x10^3/uL (150-450); Red Blood Count 4.69 x10^6/uL (4.1-5.4); Red Cell Distribution Width 12.9 % (11.5-14.0); White Blood Count 14.7 x10^3/uL (4.0-10.5)
[2022-10-23 01:55] LABS: ALBUMIN 4.3 g/dL (3.5-5.0); ALKALINE PHOSPHATASE 90 U/L (38-126); BLOOD UREA NITROGEN 14 mg/dL (7-17); CHLORIDE 103 mmol/L (98-107); Calcium 9.3 mg/dL (8.4-10.2); Carbon Dioxide 26 mmol/L (22-30); Creatinine 1 0.74 mg/dL (0.52-1.04); EST GLOMERULAR FILTRATION RATE > 60.0 ML/MIN; Glucose 121 mg/dL (74-106); Potassium 3.5 mmol/L (3.5-5.1); SGOT/AST 21 U/L (14-36); SGPT/ALT 17 U/L (0-35); SODIUM 141 mmol/L (137-145); Total Protein 7.4 g/dL (6.3-8.2)
[2022-10-23] MEDS ORDERED: Hydromorphone 1 mg/ml Injection IV ONE ×3 (02:29→07:39)
[2022-10-23] MEDS ORDERED: Hydromorphone 1 mg/ml Injection ONE ×2 (02:33→04:22)
--- NOTE | 2022-10-23 03:16 | ERPHSYRPT ---
- History of Present Illness Source: patient Exam Limitations: no limitations Patient Subjective Stated Complaint: UTI, abd pain/flank pain Triage Nursing Assessment: Pt brought back by wheelchair, pt is thrashing around in pain. Pt's daughter at bedside. Pt informed me that she has a UTI as of last Sunday but didn't want any antibiotics for it and was treating it with natural remedies. Pt c/o rt lower abd pain and rt flank pain which began around 11pm tonight. Abd lg and obese with active bs x4 quad, tender on palpation. Pt's LBM was 10/22/22. Physician History: This is a 46-year-old female presents with suprapubic pain. Patient reports pain started about 1 week ago. Patient visited her doctor about 3 days ago was diagnosed with a UTI was offered antibiotics patient refused and stated she was going to treat it with cranberry juice and other remedies at home. Reports she has been having right-sided suprapubic pain that radiates to her back. Patient reports pain is 10 out of 10. Patient reports seeing blood in her urine. Reports she is also having increased urine frequency with decreased urine output. Patient denies having any fever, chills, nausea/vomiting. Allergies/Adverse Reactions: erythromycin base Allergy (Unknown, Verified 10/23/22 01:25) Penicillins Allergy (Unknown, Verified 10/23/22 01:25) Hx Tetanus, Diphtheria Vaccination/Date Given: Yes Hx Influenza Vaccination/Date Given: No Hx Pneumococcal Vaccination/Date Given: No Travel Risk - International Travel Have you traveled outside of the country in past 3 weeks: No - Coronavirus Screening Are you exhibiting any of the following symptoms?: No Close contact with a COVID-19 positive Pt in past 14-21 Days: No - Vaccine Status Have you recieved a Covid-19 vaccination: No - Review of Systems Constitutional: No Fever, No Chills Eyes: No Symptoms Ears, Nose, & Throat: No Symptoms Respiratory: No Cough, No Dyspnea Cardiac: No Chest Pain, No Edema, No Syncope Abdominal/Gastrointestinal: No Abdominal Pain, No Nausea, No Vomiting, No Diarrhea Genitourinary Symptoms: Frequency, Hematuria Musculoskeletal: No Back Pain, No Neck Pain Skin: No Rash Neurological: No Dizziness, No Focal Weakness, No Sensory Changes Psychological: No Symptoms Endocrine: No Symptoms All Other Systems: Reviewed and Negative - Past Medical History Pertinent Past Medical History: Yes Cardiac History: Hypertension Respiratory History: Bronchitis, Pneumonia GI Medical History: Gallbladder Disease Psycho-Social History: Anxiety, Depression Other Medical History: fibromyaglia - Past Surgical History Past Surgical History: Yes Gastrointestinal: Cholecystectomy Musculoskeletal: Orthopedic Surgery Female Surgical History: Hysterectomy Other Surgical History: left knee - Social History Smoking Status: Current every day smoker How long have you smoked: 33 yrs Exposure to second hand smoke: No Drug Use: marijuana Patient Lives Alone: No - Female History Hx Now: No - Nursing Vital Signs Nursing Vital Signs: Initial Vital Signs Temperature 99.3 F 10/23/22 01:05 Pulse Rate 62 10/23/22 01:05 Respiratory Rate 20 10/23/22 01:05 Blood Pressure 189/100 10/23/22 01:05 O2 Sat by Pulse Oximetry 98 10/23/22 01:05 Pain Scale Pain Intensity 10 - Physical Exam General Appearance: moderate distress, alert Eye Exam: PERRL/EOMI Ears, Nose, Throat Exam: normal ENT inspection Neck Exam: normal inspection Respiratory Exam: normal breath sounds, lungs clear, No respiratory distress Cardiovascular Exam: regular rate/rhythm, normal heart sounds, normal peripheral pulses Gastrointestinal/Abdomen Exam: soft, normal bowel sounds, No tenderness, No mass Back Exam: normal inspection, normal range of motion, No CVA tenderness, No vertebral tenderness Extremity Exam: normal inspection, normal range of motion, pelvis stable Neurologic Exam: alert, oriented x 3, cooperative, normal mood/affect, nml cerebellar function, nml station & gait, sensation nml, No motor deficits Skin Exam: normal color, warm, dry, No rash Lymphatic Exam: No adenopathy SpO2: 99 Ordered Tests: Active Orders 24 hr Category Date Time Status Code Status Order ROUTINE Care 10/23/22 04:27 Ordered IV Care Q6H Care 10/23/22 04:27 Ordered IV Insertion STAT Care 10/23/22 01:[address] in Observation ROUTINE Care 10/23/22 04:27 Ordered House Regular Diet Diet 10/23/22 Breakfast Ordered ABDOMEN AND PELVIS W/0 CONTRAS [CT] Stat Exams 10/23/22 01:31 Completed BMP AM.LAB Lab 10/24/22 04:00 Ordered CBC W DIFF AM.LAB Lab 10/24/22 04:00 Ordered CBC W DIFF Stat Lab 10/23/22 01:39 Completed CMP Stat Lab 10/23/22 01:39 Completed Lactic Acid AM.LAB Lab 10/24/22 04:00 Ordered Lactic Acid Stat Lab 10/23/22 03:24 Completed Manual Differential NC Stat Lab 10/23/22 01:39 Completed UA W/RFX UR CULTURE Stat Lab 10/23/22 01:29 Ordered Transfer Order Routine Transfer 10/23/22 Ordered Medication Summary Generic Name Dose Route Start Last Admin Trade Name Madison PRN Reason Stop Dose Admin Levofloxacin/Dextrose 500 mg in 100 mls @ 100 mls/hr 10/23/22 03:40 10/23/22 03:41 Levofloxacin 500mg/100ml D5w IV 10/23/22 04:39 100 mls/hr ONCE ONE 100 mls/hr Administration Sodium Chloride 1,000 mls @ 999 mls/hr 10/23/22 03:37 10/23/22 03:41 Sodium Chloride 0.9% 1000 Ml IV 10/23/22 04:37 999 mls/hr .Q1H1M STA Administration Vancomycin HCl 2 gm in 400 mls @ 133.333 mls/hr 10/23/22 03:55 10/23/22 04:23 Vancomycin 2 Gram/400 Ml Bag IV 10/23/22 06:54 133.333 mls/hr STAT ONE 133.33 mls/hr Administration Tamsulosin HCl 0.4 mg 10/23/22 10:00 10/23/22 04:25 Tamsulosin Hcl 0.4 Mg Cap PO 11/22/22 09:59 0.4 mg DAILY SUMA Administration Discontinued Medications Generic Name Dose Route Start Last Admin Trade Name Madison PRN Reason Stop Dose Admin Ceftriaxone Sodium 1,000 mg 10/23/22 03:20 10/23/22 03:31 Ceftriaxone Sodium 1000 Mg Inj Vial IM 10/23/22 03:21 Not Given STAT ONE Hydromorphone HCl 0.5 mg 10/23/22 02:29 10/23/22 02:34 Hydromorphone 1 Mg/1ml Inj IV 10/23/22 02:30 0.5 mg STAT ONE Administration Hydromorphone HCl Confirm 10/23/22 02:33 Hydromorphone 1 Mg/1ml Inj Administered 10/23/22 02:34 Dose 1 mg .ROUTE .STK-MED ONE Hydromorphone HCl 1 mg 10/23/22 04:10 10/23/22 04:25 Hydromorphone 1 Mg/1ml Inj IV 10/23/22 04:11 1 mg STAT ONE Administration Hydromorphone HCl Confirm 10/23/22 04:22 Hydromorphone 1 Mg/1ml Inj Administered 10/23/22 04:23 Dose 1 mg .ROUTE .STK-MED ONE Sodium Chloride 1,000 mls @ 999 mls/hr 10/23/22 01:29 10/23/22 03:13 Sodium Chloride 0.9% 1000 Ml IV 10/23/22 02:29 0 mls/hr .Q1H1M STA Infusion Sodium Chloride Confirm 10/23/22 01:35 Sodium Chloride 0.9% 1000 Ml Administered 10/23/22 01:36 Dose 1,000 mls @ ud .ROUTE .STK-MED ONE Sodium Chloride Confirm 10/23/22 03:38 Sodium Chloride 0.9% 1000 Ml Administered 10/23/22 03:39 Dose 1,000 mls @ ud .ROUTE .STK-MED ONE Levofloxacin/Dextrose Confirm 10/23/22 03:38 Levofloxacin 500mg/100ml D5w Administered 10/23/22 03:39 Dose 500 mg in 100 mls @ ud IV .STK-MED ONE Vancomycin HCl Confirm 10/23/22 04:22 Vancomycin 2 Gram/400 Ml Bag Administered 10/23/22 04:23 Dose 2 gm in 400 mls @ ud IV .STK-MED ONE Morphine Sulfate 2 mg 10/23/22 01:29 10/23/22 01:37 Morphine Sulfate 2 Mg/Ml Inj IV 10/23/22 01:30 2 mg STAT ONE Administration Morphine Sulfate Confirm 10/23/22 01:35 Morphine Sulfate 2 Mg/Ml Inj Administered 10/23/22 01:36 Dose 2 mg .ROUTE .STK-MED ONE Lab/Rad Data: Laboratory Result Diagrams 10/23/22 01:39 10/23/22 01:39 Laboratory Results 10/23/22 10/23/22 10/23/22 Range/Units 03:24 01:39 01:39 WBC 14.7 H (4.0-10.5) x10^3/uL RBC 4.69 (4.1-5.4) x10^6/uL Hgb 13.9 (12.0-16.0) g/dL Hct 41.3 (35-47) % MCV 88.1 (78-100) fL MCH 29.6 (26-32) pg MCHC 33.7 (32-36) g/dL RDW 12.9 (11.5-14.0) % Plt Count 334 (150-450) x10^3/uL MPV 10.3 (7.5-11.0) fL Segmented Neutrophils 36 (36.0-66.0) % Lymphocytes (Manual) 53 H (24-44) % Monocytes (Manual) 8 (0.0-12.0) % Eosinophils (Manual) 3 (0.00-3.0) % Platelet Estimate NORMAL (NORMAL) RBC Morphology NORMAL Sodium 141 (137-145) mmol/L Potassium 3.5 (3.5-5.1) mmol/L Chloride 103 (98-107) mmol/L Carbon Dioxide 26 (22-30) mmol/L Anion Gap 15.0 (5-15) MEQ/L BUN 14 (7-17) mg/dL Creatinine 0.74 (0.52-1.04) mg/dL Estimated GFR > 60.0 ML/MIN Glucose 121 H (74-106) mg/dL Lactic Acid 2.4 H (0.4-2.0) Calcium 9.3 (8.4-10.2) mg/dL Total Bilirubin 0.30 (0.2-1.3) mg/dL AST 21 (14-36) U/L ALT 17 (0-35) U/L Alkaline Phosphatase 90 (38-126) U/L Serum Total Protein 7.4 (6.3-8.2) g/dL Albumin 4.3 (3.5-5.0) g/dL - Progress Progress: pain not gone completely, re-examined (Patient reports pain is improved with pain medications but has returned.) Progress Note: 10/23/22 04:17 46-year-old female presented with suprapubic pain. White blood cell count shows 14.7 lactic acid is 2.4 patient creatinine is 0.7. Abdominal pelvic CT scan shows a right-sided nonobstructing calculi that is being mild obstructive uropathy proximal to the stone and multiple lesions located on her liver. Patient still is unable to urinate to obtain a urinalysis. After pain medications administration patient reports feeling better but continues to have pain. Patient meets SIRS criteria with her respiratory rate, white cell count respiratory rate. Spoke to Dr. Wheeler at [facility] regarding transfer, he does not believe that this warrants a transfer to his facility. Spoke to Dr. Gonzales regarding patient, agreed for admission. 10/23/22 04:33 Discussed with : Luci Will see patient in: hospital (observation) Counseled pt/family regarding: lab results, diagnosis, need for follow-up, rad results - Departure Departure Disposition: Observation Clinical Impression: Right nephrolithiasis, SIRS (systemic inflammatory response syndrome) Condition: Fair Critical Care Time: No Referrals: DOCTOR,NO FAMILY [Primary Care Provider] - Follow up/PCP as directed
--- NOTE | 2022-10-23 03:18 | XRAY ---
CLINICAL HISTORY:Suprapubic pain; COMPARISON:None; TECHNIQUES:CT of the abdomen and pelvis was performed without intravenous contrast; FINDINGS: An obstructing calculus of 0.4 x 0.2 cm was identified in the right distal ureter just before the right ureterovesical junction. It is causing mild hydronephrosis and the hydroureter proximal to it. Right-sided extrarenal pelvis noted. No calculus was seen in the left kidney.No hydronephrosis and hydroureter on the left side. No cyst mass on either side. Urinary bladder collapses with the bulb of jimenez and is seen in situ. The uterus and both ovaries are not visualized could be due to prior surgery. The liver is enlarged measuring 21 cm in craniocaudal dimension. A few hypodense lesions were identified in the right lobe of the liver, the largest one in segment VII measures 3.4 x 2.4 cm, and in segment VIII measures 1.6 x 1.5 cm. Would recommend contrast-enhanced CT abdomen and pelvis for further evaluation. No intra-or extrahepatic bleed dilation. Common bile appears normal. Surgical wilson are seen at the gallbladder fossa likely due to prior cholecystectomy. Pancreas appears normal. No peripancreatic fat stranding, pancreatic pseudocyst, or peripancreatic fluid collection. Spleen normal in size, no mass seen. Both adrenal glands are unremarkable. Stomach and small bowel loops are unremarkable. 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 The appendix is separately visualized and appears normal. Large bowel loops appear normal without evidence of bowel obstruction. The sigmoid and rectum appear normal. No evidence of significant enlargement of the mesenteric or retroperitoneal lymph nodes. Included section of lung bases appears normal. Mild degenerative changes were seen in visualized thoracolumbar spine. IMPRESSION: A nonobstructing calculus of 0.4 x 0.2 cm was seen in the right distal ureter just before the ureterovesical junction causing mild obstructive uropathy proximal to it. No obstructive uropathy on the left side. Hepatomegaly with few hypodense lesions in the right lobe of the liver would recommend CT of the abdomen and pelvis with contrast for further evaluation. The [facility] was called at [phone] at 2:02 AM [employer], 10/23/2022 and the results are verbally communicated with Negro Burns. Electronically Signed by: Viridiana Carlin MD. (10/23/2022 02:13:08 [facility])
[2022-10-23] MEDS ORDERED: Rocephin 1000 MG INJ IM ONE (03:20)
[2022-10-23] MEDS ORDERED: Levofloxacin 500MG/100ML D5W 500 MG/100 ML BAG IV ONE ×2 (03:38→03:40)
[2022-10-23 03:40] LABS: Eosinophil 3 % (0.00-3.0); Lymphocytes 53 % (24-44); Monocyte 8 % (0.0-12.0); Neutrophils 36 % (36.0-66.0); Platelet Estimate NORMAL (NORMAL); Total Cells Counted 100
[2022-10-23] MEDS ORDERED: VANCOMYCIN 2 GRAM/400 ML BAG 2 GM/400 ML PIGGYBACK IV ONE ×2 (03:55→04:22)
[2022-10-23] MEDS: Flomax 0.4 MG PO SCH (04:25)
[2022-10-23] MEDS ORDERED: TRANDATE 20 MG/4 ML SYRINGE IV ONE (06:06)
[2022-10-23] MEDS ORDERED: TRANDATE 20 MG/4 ML SYRINGE IV PRN (06:07)
[2022-10-23] MEDS: Hydromorphone 1 mg/ml Injection IV PRN ×3 (06:09→21:45)
[2022-10-23] MEDS: Sodium Chloride 0.9% 1000 ML 1,000 ML IV SCH ×2 (08:02→21:08)
[2022-10-23 08:27] LABS: Appearance Clear (Clear); Bacteria None Seen /HPF (None Seen); Bilirubin Negative (Negative); Blood Large (Negative); Epithelial Cells None Seen /HPF (None Seen); Glucose, Urine 250 mg/dL (Negative); Hyaline Casts NONE SEEN /LPF (0-2); Ketones 15 (Negative); Leukocyte Esterase Negative (Negative); Nitrite Negative (Negative); Ph 6.5 (4.6-8.0); Protein,Urine Dip Negative (Negative); RBC >100 /HPF (0-5); Specific Gravity 1.015 (1.005-1.030); Urobilinogen 0.2 mg/dL (0.2); WBC 0-2 /HPF (0-5)
[2022-10-23] MEDS ORDERED: Apresoline 25 MG TABLET PO PRN (08:39)
[2022-10-23 08:44] LABS: ADD URINE CULTURE? NO (NO)
[2022-10-23] MEDS ORDERED: GI COCKTAIL 45 ML (Maalox/Lidocaine) PO ONE (08:59)
[2022-10-23] MEDS: PROTONIX 40 MG IV IV SCH (09:33)
--- NOTE | 2022-10-23 10:39 | PCM.HP ---
History of Present Illness - Chief Complaint Chief Complaint: nephrolethiasis Date: 10/23/22 History of Present Illness: 46-year-old woman with a history of hypertension and IBS, who presents with right flank and right lower quadrant abdominal pain. Patient states that 3 days prior to admission, she presented to outpatient physician with complaints of straining to urinate and bladder spasm. She was told that she had a UTI, but she declined antibiotics, and was treating with "natural remedies, including cranberry juice. She had sudden worsening of her pain yesterday, now radiating to her right lower back and right lower quadrant. She also had nausea, diarrhea, and severe abdominal gas. Initially admitted with renal stone, and pain was initially controlled with Dilaudid and fluids. However, this morning, she is having severe writhing midepigastric abdominal pain, which she describes as her gastritis. She is able to lay flat in bed. However, with a dose of GI cocktail, she feels better immediately after drinking it. - Review of Systems Constitutional: No Fever, No Chills, No Malaise, No Night Sweats, No Weakness Eyes: No Symptoms Ears, Nose, & Throat: No Symptoms Respiratory: No Symptoms Cardiac: No Chest Pain, No Edema, No Palpitations Abdominal/Gastrointestinal: Abdominal Pain, Nausea, Diarrhea, No Vomiting Genitourinary Symptoms: Hematuria, Urinary Retention, No Dysuria, No Frequency, No Urgency Musculoskeletal: Back Pain Skin: No Pruritis, No Rash Neurological: No Symptoms Psychological: No Symptoms Endocrine: No Symptoms Hematologic/Lymphatic: No Symptoms Medications & Allergies Home Medications: Home Medication List Lisinopril/Hydrochlorothiazide [Lisinopril-Hctz 10-12.5 mg Tab] 1 each PO QAM #30 tablet 08/26/22 [Rx Confirmed 10/23/22] Allergies/Adverse Reactions: Allergies Allergy/AdvReac Type Severity Reaction Status Date / Time erythromycin base Allergy Unknown Verified 10/23/22 01:25 Penicillins Allergy Unknown Verified 10/23/22 01:25 - Past Medical History Past Medical History: Yes Neurological History: No Pertinent History ENT History: No Pertinent History Cardiac History: Hypertension Respiratory History: No Pertinent History Endocrine Medical History: No Pertinent History Musculoskelatal History: No Pertinent History GI Medical History: Gallbladder Disease, Irritable Bowel History: No Pertinent History Pyscho-Social History: Anxiety, Depression Reproductive Disorders: No Pertinent History Comment: fibromyaglia - Female History Are you now?: No - Past Surgical History Past Surgical History: Yes Neuro Surgical History: No Pertinent History Cardiac History: No Pertinent History Respiratory Surgery: No Pertinent History GI Surgical History: Cholecystectomy Musculskeletal Surgical Hx: Orthopedic Surgery Female Surgical History: Hysterectomy Other Surgical History: left knee - Social History Smoking Status: Current every day smoker How long have you smoked: 33 yrs Exposure to second hand smoke: No Alcohol: None Drug Use: marijuana Significant Family History: no pertinent family hx - Physical Exam Vital Signs: Vital Signs - 24 hr Temp Pulse Resp BP Pulse Ox 10/23/22 05:11 97.1 F 53 L 22 205/106 98 10/23/22 04:36 99 10/23/22 04:00 65 20 183/88 100 10/23/22 03:08 73 22 202/110 99 10/23/22 02:04 63 22 206/110 100 10/23/22 01:05 99.3 F 62 20 189/100 98 General Appearance: moderate distress, anxiety Neurologic Exam: alert, oriented x 3 Respiratory Exam: other (Unable to auscultate due to patient's moaning from abdominal pain), No respiratory distress, No accessory muscle use Cardiovascular Exam: other (Unable to auscultate due to patient's moaning from abdominal pain), No tachycardia, No bradycardia, No edema Gastrointestinal/Abdomen Exam: tenderness, No distention, No mass, No rebound Results - Labs Lab/Micro Results: Lab Results-Last 24 Hours 10/23/22 10/23/22 10/23/22 Range/Units 01:39 01:39 03:24 WBC 14.7 H (4.0-10.5) x10^3/uL RBC 4.69 (4.1-5.4) x10^6/uL Hgb 13.9 (12.0-16.0) g/dL Hct 41.3 (35-47) % MCV 88.1 (78-100) fL MCH 29.6 (26-32) pg MCHC 33.7 (32-36) g/dL RDW 12.9 (11.5-14.0) % Plt Count 334 (150-450) x10^3/uL MPV 10.3 (7.5-11.0) fL Segmented Neutrophils 36 (36.0-66.0) % Lymphocytes (Manual) 53 H (24-44) % Monocytes (Manual) 8 (0.0-12.0) % Eosinophils (Manual) 3 (0.00-3.0) % Platelet Estimate NORMAL (NORMAL) RBC Morphology NORMAL Sodium 141 (137-145) mmol/L Potassium 3.5 (3.5-5.1) mmol/L Chloride 103 (98-107) mmol/L Carbon Dioxide 26 (22-30) mmol/L Anion Gap 15.0 (5-15) MEQ/L BUN 14 (7-17) mg/dL Creatinine 0.74 (0.52-1.04) mg/dL Estimated GFR > 60.0 ML/MIN Glucose 121 H (74-106) mg/dL Lactic Acid 2.4 H (0.4-2.0) Calcium 9.3 (8.4-10.2) mg/dL Total Bilirubin 0.30 (0.2-1.3) mg/dL AST 21 (14-36) U/L ALT 17 (0-35) U/L Alkaline Phosphatase 90 (38-126) U/L Serum Total Protein 7.4 (6.3-8.2) g/dL Albumin 4.3 (3.5-5.0) g/dL Urine Color (Yellow) Urine Appearance (Clear) Urine pH (4.6-8.0) Ur Specific [place] (1.005-1.030) Urine Protein (Negative) Urine Glucose (UA) (Negative) mg/dL Urine Ketones (Negative) Urine Blood (Negative) Urine Nitrite (Negative) Urine Bilirubin (Negative) Urine Urobilinogen (0.2) mg/dL Ur Leukocyte Esterase (Negative) U Hyaline Cast (Auto) (0-2) /LPF Urine Microscopic RBC (0-5) /HPF Urine Microscopic WBC (0-5) /HPF Ur Epithelial Cells (None Seen) /HPF Urine Bacteria (None Seen) /HPF Urine Culture Reflexed (NO) 10/23/22 10/23/22 Range/Units 08:19 09:45 WBC (4.0-10.5) x10^3/uL RBC (4.1-5.4) x10^6/uL Hgb (12.0-16.0) g/dL Hct (35-47) % MCV (78-100) fL MCH (26-32) pg MCHC (32-36) g/dL RDW (11.5-14.0) % Plt Count (150-450) x10^3/uL MPV (7.5-11.0) fL Segmented Neutrophils (36.0-66.0) % Lymphocytes (Manual) (24-44) % Monocytes (Manual) (0.0-12.0) % Eosinophils (Manual) (0.00-3.0) % Platelet Estimate (NORMAL) RBC Morphology Sodium (137-145) mmol/L Potassium (3.5-5.1) mmol/L Chloride (98-107) mmol/L Carbon Dioxide (22-30) mmol/L Anion Gap (5-15) MEQ/L BUN (7-17) mg/dL Creatinine (0.52-1.04) mg/dL Estimated GFR ML/MIN Glucose (74-106) mg/dL Lactic Acid 3.0 H (0.4-2.0) Calcium (8.4-10.2) mg/dL Total Bilirubin (0.2-1.3) mg/dL AST (14-36) U/L ALT (0-35) U/L Alkaline Phosphatase (38-126) U/L Serum Total Protein (6.3-8.2) g/dL Albumin (3.5-5.0) g/dL Urine Color Yellow (Yellow) Urine Appearance Clear (Clear) Urine pH 6.5 (4.6-8.0) Ur Specific [place] 1.015 (1.005-1.030) Urine Protein Negative (Negative) Urine Glucose (UA) 250 A (Negative) mg/dL Urine Ketones 15 A (Negative) Urine Blood Large A (Negative) Urine Nitrite Negative (Negative) Urine Bilirubin Negative (Negative) Urine Urobilinogen 0.2 (0.2) mg/dL Ur Leukocyte Esterase Negative (Negative) U Hyaline Cast (Auto) NONE SEEN (0-2) /LPF Urine Microscopic RBC >100 A (0-5) /HPF Urine Microscopic WBC 0-2 (0-5) /HPF Ur Epithelial Cells None Seen (None Seen) /HPF Urine Bacteria None Seen (None Seen) /HPF Urine Culture Reflexed NO (NO) - Radiology Impressions Radiology Exams & Impressions: Radiology Procedures Category Date Time Status ABDOMEN AND PELVIS W/0 CONTRAS [CT] Stat Exams 10/23/22 01:[address] abdomen/pelvis: Obstructing 4 x 2 mm calculus in the right distal ureter just before the right ureterovesical junction causing mild hydroureteronephrosis. A few hypodense lesions in the right lobe of the liver, one being 3.4 x 2.4 cm, another being 1.6 x 1.5 cm. Assessment/Plan (1) Hydroureteronephrosis Current Visit: Yes Status: Acute Assessment & Plan: 46-year-old with a history of hypertension and atrial bowel syndrome, here with obstructing right kidney stone. ## Kidney stone 2 x 4 mm stone, obstructing, causing mild hydroureteronephro sis. With significant pain. Initially reported to have UTI, but no pyuria on urinalysis. Her symptoms also appear more consistent with obstruction than infection. Stone should be small enough to pass spontaneously. Continue NS at 100 mL/h Continue PRN Dilaudid 0.5 mg IV q.3 hour Add Zofran PRN Start Flomax 0.4 mg daily ## Midepigastric abdominal pain patient states has been diagnosed with gastritis, but has never had an EGD. But states she takes [id number] PPI at home. Start Protonix 40 mg IV daily Give dose of GI cocktail now ## Hypertension uncontrolled currently, but in the setting of acute pain Resume home lisinopril/HCTZ 10/12.5 daily Add PRN hydralazine 25 mg q.8 hours ## Liver lesions unclear etiology. If patient stabilizes, can consider CT abdomen pelvis with contrast, versus just referring to GI for evaluation of findings as an outpatient ## Lactic acidosis mild, but no evidence of hypoperfusion, especially in her hypertensive state. She has leukocytosis, but this is likely a reactive leukocytosis from the inflammation from the urinary obstruction. Trend serial troponins Already given bolus fluids in the ED CODE STATUS: Full code Diet: Regular Prophylaxis: Ambulate for now Entirety of encounter took place via telemedicine. Patient consented to telemedicine. Code(s): N13.30 - UNSPECIFIED HYDRONEPHROSIS (2) Right nephrolithiasis Current Visit: Yes Status: Acute Code(s): N20.0 - CALCULUS OF KIDNEY Telemedicine Encounter - Telemedicine Encounter Telemedicine Encounter: The entirety of this encounter was performed via Telemedicine"
[2022-10-23] MEDS: Zestril 10 MG*** 10 MG, hydroDIURIL 25 MG*** 12.5 MG PO SCH ×2 (10:43)
[2022-10-23 10:47] LABS: Amphetamine,Urine NEGATIVE (NEGATIVE); Barbiturate,Urine NEGATIVE (NEGATIVE); Benzodiazepine,Urine NEGATIVE (NEGATIVE); Cocaine,Urine NEGATIVE (NEGATIVE); Methadone,Urine NEGATIVE (NEGATIVE); Opiate,Urine POSITIVE (NEGATIVE); PCP,Urine NEGATIVE (NEGATIVE); THC,Urine POSITIVE (NEGATIVE)
[2022-10-23] MEDS ORDERED: MAALOX ES 30 ML UNIT DOSE PO PRN (16:09)
[2022-10-23] MEDS: Zofran 4 MG/2 ML VIAL IV PRN (21:45)
[2022-10-24 05:01] LABS: Absolute Neutrophil Ct (ANC) 12.15 x10^3/uL (1.4-6.9); BASOPHIL % 0.1 % (0.0-0.4); Basophil (Absolute #) 0.02 x10^3/uL (0-0.4); Eosinophil % 0.1 % (0.00-5.0); Eosinophil (Absolute #) 0.01 x10^3/uL (0-0.5); Hematocrit 42.2 % (35-47); Hemoglobin 14.3 g/dL (12.0-16.0); IMMATURE GRAN # 0.07 x10^3u/L (0.00-0.03); IMMATURE GRAN % 0.4 % (0.00-0.4); Lymphocyte (Absolute #) 2.35 x10^3/uL (1.0-4.6); Lymphocytes % 14.6 % (24.0-44.0); Mean Corpuscular Hemoglobin 29.5 pg (26-32); Mean Corpuscular Hgb Concent. 33.9 g/dL (32-36); Mean Platelet Volume 10.4 fL (7.5-11.0); Monocyte (Absolute #) 1.45 x10^3/uL (0.0-1.3); Neutrophil % 75.8 % (36.0-66.0); Platelet Count 280 x10^3/uL (150-450); Red Blood Count 4.85 x10^6/uL (4.1-5.4); Red Cell Distribution Width 13.2 % (11.5-14.0); White Blood Count 16.1 x10^3/uL (4.0-10.5)
[2022-10-24 05:29] LABS: ISTAT CREA 0.6 mg/dL (0.6-1.3); ISTAT K 3.3 mmol/L (3.5-4.9); ISTAT iCA 1.08 mmol/L (1.12-1.32)
[2022-10-24] MEDS: Sodium Chloride 0.9% 1000 ML 1,000 ML IV SCH ×2 (06:02→16:50)
[2022-10-24] MEDS: Hydromorphone 1 mg/ml Injection IV PRN (08:51)
[2022-10-24] MEDS: Zofran 4 MG/2 ML VIAL IV PRN (08:51)
[2022-10-24] MEDS: PROTONIX 40 MG IV IV SCH (09:48)
[2022-10-24] MEDS: Flomax 0.4 MG PO SCH (09:48)
[2022-10-24] MEDS: Zestril 10 MG*** 10 MG, hydroDIURIL 25 MG*** 12.5 MG PO SCH ×2 (09:48)
[2022-10-24] MEDS ORDERED: Klor Con PO ONE ×2 (10:43→15:12)
--- NOTE | 2022-10-24 15:46 | PCM.NOTE ---
Date and Time: 10/24/22 154 Subjective Assessment: No acute events overnight. Her pain had initially improved, and only required 1 dose of Dilaudid overnight. However, when she began eating today, she began to have severe recurrent right lower flank pain. Also an episode of vomiting. No fevers or chills overnight. Objective Exam General Appearance: no apparent distress Neurologic Exam: alert, oriented x 3 Skin Exam: No rash Respiratory Exam: normal breath sounds, No lungs clear, No accessory muscle use Cardiovascular Exam: regular rate/rhythm, No murmur, No edema Gastrointestinal/Abdomen Exam: soft, No tenderness, No distention OBJECTIVE DATA Vital Signs: Vital Signs - 24 hr Temp Pulse Resp BP Pulse Ox 10/24/22 12:00 97.6 F 81 16 126/66 97 10/24/22 07:18 97.8 F 87 16 135/65 96 10/24/22 04:00 96.0 F 100 H 16 132/59 95 10/23/22 19:14 96.0 F 88 16 183/85 95 10/23/22 16:00 97.8 F 72 21 154/76 97 Pain Assessment - Last Documented Pain Intensity 2 Pain Scale Used 0-10 Pain Scale Intake and Output: Intake & Output 10/22/22 10/23/22 10/24/22 10/25/22 11:59 11:59 11:59 11:59 Intake Total 0 2755 Output Total 2650 700 Balance 0 105 -700 Weight 90.1 kg Lab Results: Lab Results-Last 24 Hours 10/24/22 10/24/22 Range/Units 04:35 04:35 WBC 16.1 H (4.0-10.5) x10^3/uL RBC 4.85 (4.1-5.4) x10^6/uL Hgb 14.3 (12.0-16.0) g/dL Hct 42.2 (35-47) % MCV 87.0 (78-100) fL MCH 29.5 (26-32) pg MCHC 33.9 (32-36) g/dL RDW 13.2 (11.5-14.0) % Plt Count 280 (150-450) x10^3/uL MPV 10.4 (7.5-11.0) fL Gran % 75.8 H (36.0-66.0) % Immature Gran % (Auto) 0.4 (0.00-0.4) % Nucleat RBC Rel Count 0.0 (0.00-0.1) % Eos # (Auto) 0.01 (0-0.5) x10^3/uL Immature Gran # (Auto) 0.07 H (0.00-0.03) x10^3u/L Absolute Lymphs (auto) 2.35 (1.0-4.6) x10^3/uL Absolute Monos (auto) 1.45 H (0.0-1.3) x10^3/uL Absolute Nucleated RBC 0.00 (0.00-0.01) x10^3u/L Lymphocytes % 14.6 L (24.0-44.0) % Monocytes % 9.0 (0.0-12.0) % Eosinophils % 0.1 (0.00-5.0) % Basophils % 0.1 (0.0-0.4) % Absolute Granulocytes 12.15 H (1.4-6.9) x10^3/uL Basophils # 0.02 (0-0.4) x10^3/uL Sodium Direct 140 (138-146) mmol/L Potassium 3.3 L (3.5-4.9) mmol/L Chloride 102 (98-109) mmol/L Carbon Dioxide 26 (24-29) mmol/L Venous BUN 11 (8-26) mg/dL Creatinine 0.6 (0.6-1.3) mg/dL Glucose 121 H (70-105) mg/dL Ionized Calcium 1.08 L (1.12-1.32) mmol/L Radiology Exams: Radiology Procedures Category Date Time Status ABDOMEN AND PELVIS W/0 CONTRAS [CT] Stat Exams 10/23/22 01:31 Completed Multi-Disciplinary Progress Notes: Multi-Disciplinary Progress Notes 10/24/22 10:34 Case Management Note by Louann Dobson S/W PATIENT. SHE CONT TO DENY ANY ADDITIONAL NEEDS AT MT. WILL GO HOME WITH SPOUSE AT MT AT [facility]. Initialized on 10/24/22 10:34 - END OF NOTE Assessment/Plan (1) Hydroureteronephrosis Current Visit: Yes Status: Acute Assessment & Plan: 46-year-old with a history of hypertension and atrial bowel syndrome, here with obstructing right kidney stone. ## Kidney stone 2 x 4 mm stone, obstructing, causing mild hydroureter onephrosis. With significant pain. Initially reported to have UTI, but no pyuria on urinalysis. Her symptoms also appear more consistent with obstruction than infection. Stone appears to have not passed yet. Continue NS at 100 mL/h Continue PRN Dilaudid 0.5 mg IV q.3 hour Continue Zofran PRN Continue Flomax 0.4 mg daily ## Midepigastric abdominal pain patient states has been diagnosed with gastritis, but has never had an EGD. But states she takes [id number] PPI at home. Epigastric pain resolved today with Protonix. Continue Protonix 40 mg IV daily Continue PRN Maalox ## Hypertension controlled today after controlling pain and resuming her home medications. Continue home lisinopril/HCTZ 10/12.5 daily Continue PRN hydralazine 25 mg q.8 hours ## Liver lesions unclear etiology. If patient stabilizes, can consider CT abdomen pelvis with contrast, versus referring to GI for evaluation of findings as an outpatient CODE STATUS: Full code Diet: Regular Prophylaxis: Ambulate for now Entirety of encounter took place via telemedicine. Patient consented to telemedicine. Code(s): N13.30 - UNSPECIFIED HYDRONEPHROSIS (2) Right nephrolithiasis Current Visit: Yes Status: Acute Code(s): N20.0 - CALCULUS OF KIDNEY Telemedicine Encounter - Telemedicine Encounter Telemedicine Encounter: The entirety of this encounter was performed via Telemedicine"
[2022-10-25] MEDS: Sodium Chloride 0.9% 1000 ML 1,000 ML IV SCH (03:11)
[2022-10-25 05:22] LABS: Hemoglobin 12.8 g/dL (12.0-16.0); Mean Cell Volume 88.8 fL (78-100); Mean Corpuscular Hemoglobin 29.2 pg (26-32); Mean Corpuscular Hgb Concent. 32.8 g/dL (32-36); Mean Platelet Volume 10.3 fL (7.5-11.0); Platelet Count 242 x10^3/uL (150-450); Red Blood Count 4.39 x10^6/uL (4.1-5.4); Red Cell Distribution Width 12.7 % (11.5-14.0); White Blood Count 12.5 x10^3/uL (4.0-10.5)
[2022-10-25 05:54] LABS: ANION GAP 10.5 MEQ/L (5-15); BLOOD UREA NITROGEN 7 mg/dL (7-17); CHLORIDE 102 mmol/L (98-107); Calcium 8.3 mg/dL (8.4-10.2); Carbon Dioxide 30 mmol/L (22-30); Creatinine 1 0.57 mg/dL (0.52-1.04); EST GLOMERULAR FILTRATION RATE > 60.0 ML/MIN; Glucose 107 mg/dL (74-106); Potassium 3.4 mmol/L (3.5-5.1); SODIUM 139 mmol/L (137-145)
[2022-10-25] MEDS ORDERED: Klor Con PO ONE (09:26)
[2022-10-25] MEDS: Zestril 10 MG*** 10 MG, hydroDIURIL 25 MG*** 12.5 MG PO SCH ×2 (09:29)
[2022-10-25] MEDS: Flomax 0.4 MG PO SCH (09:29)
--- NOTE | 2022-10-25 10:30 | XRAY ---
Indication: Liver masses on recent CT abdomen/pelvis without contrast exam. Right ureter calculus. Multiple contiguous axial images obtained through the abdomen and pelvis using 80 cc Isovue 370 contrast. Comparison: October 23, 2022 Lung bases demonstrate stable 8 mm indeterminant right posterior gutter noncalcified nodule. No infiltrate or effusion. Heart not enlarged. Noncontrasted stomach and bowel loops appear nonobstructed. No free fluid/air. Grossly stable appearing hepatic lesions. Again largest in right lobe near dome of diaphragm measuring 3.4 x 2.4 cm with centripetal enhancement favoring a hemangioma. Smaller round hypodense lesions do not enhance favoring cysts. Again cholecystectomy and hysterectomy. No free fluid/air. Previous 3-4 mm distal right ureteral calculus has moved more distally now seen approximately 1 cm proximal to UVJ, previously approximately 2 cm. Grossly stable mild hydronephrosis and minimal hydroureter consistent with partial obstructive uropathy. A few tiny bilateral renal cortical cysts not well seen on previous noncontrast exam, largest right lower pole measuring 1 cm. Remaining liver, pancreas, spleen, adrenal glands, kidneys, and bladder are unremarkable. Stable minimal aortoiliac calcifications. No AAA or pathologic retroperitoneal lymphadenopathy. Impression: 1. Again partial obstructing distal right ureter micro-calculus as detailed. 2. Hepatic lesions reidentified. Largest demonstrates enhancement characteristics favoring hemangioma. Smaller round lesions favor benign cysts. 3. Incidental benign bilateral renal cysts. 4. Stable indeterminant subcentimeter right posterior gutter noncalcified pulmonary nodule.
--- NOTE | 2022-10-25 10:54 | PCM.DS ---
Discharge Summary Date of Admission: 10/23/22 04:40 Date of Discharge: 10/25/2022 Admitting Physician: ANNY HOLLINGSWORTH Primary Care Provider: Isaiah Liriano, [facility], Vaishali Bailey Allergies Allergies erythromycin base Allergy (Unknown, Verified 10/23/22 01:25) Penicillins Allergy (Unknown, Verified 10/23/22 01:25) Hospital Summary - Hospital Course Hospital Course: 46-year-old with a history of hypertension, IBS, and gastritis, who presented with 3 days of severe right flank and right lower quadrant abdominal pain, associated with straining to urinate and bladder spasm, but no actual dysuria. No hematuria. She was found to have a 4 mm x 2 mm stone in the right ureter just proximal to the right ureteropelvic junction, causing mild hydroureteronephrosis. She was admitted for pain control. She had no evidence of UTI. She was put on IV narcotics and fluids and started on Flomax. At one point, she developed separate severe midepigastric abdominal pain, resolved with restarting her PPI. Her pain became well controlled without need for IV narcotics, but repeat imaging showed that the stone was still proximal to the ureteropelvic junction, although it had advanced 1 cm. She will be discharged home on Flomax and PRN NSAIDs, and was instructed to monitor for stone passage and retain the stone if possible for analysis. She was also directed to follow- up with urology if the stone had not passed after 4 weeks. Incidentally, patient was shown on CT to have multiple liver lesions, the largest 3.4 x 2.4 cm, with appearance favoring hemangioma. Per patient, these are known and stable. - Vitals & Intake/Output Vital Signs: Vital Signs Temperature 97.1 F 10/25/22 07:11 Pulse Rate 75 10/25/22 07:11 Respiratory Rate 20 10/25/22 07:11 Blood Pressure 131/74 10/25/22 07:11 O2 Sat by Pulse Oximetry 98 10/25/22 07:11 Intake & Output: Intake & Output 10/22/22 10/23/22 10/24/22 10/25/22 11:59 11:59 11:59 11:59 Intake Total 0 2755 3154 Output Total 2650 1600 Balance 0 105 1554 Weight 90.1 kg - Lab Result Diagrams: 10/25/22 04:52 10/25/22 04:52 Lab Results-Last 24 Hrs: Lab Results-Last 24 Hours 10/25/22 10/25/22 Range/Units 04:52 04:52 WBC 12.5 H (4.0-10.5) x10^3/uL RBC 4.39 (4.1-5.4) x10^6/uL Hgb 12.8 (12.0-16.0) g/dL Hct 39.0 (35-47) % MCV 88.8 (78-100) fL MCH 29.2 (26-32) pg MCHC 32.8 (32-36) g/dL RDW 12.7 (11.5-14.0) % Plt Count 242 (150-450) x10^3/uL MPV 10.3 (7.5-11.0) fL Sodium 139 (137-145) mmol/L Potassium 3.4 L (3.5-5.1) mmol/L Chloride 102 (98-107) mmol/L Carbon Dioxide 30 (22-30) mmol/L Anion Gap 10.5 (5-15) MEQ/L BUN 7 (7-17) mg/dL Creatinine 0.57 (0.52-1.04) mg/dL Estimated GFR > 60.0 ML/MIN Glucose 107 H (74-106) mg/dL Calcium 8.3 L (8.4-10.2) mg/dL - Radiology Exams Ordered Rad Exams-Entire Visit: Radiology Procedures Category Date Time Status ABDOMEN AND PELVIS W CONTRAST [CT] DAILY Exams 10/25/22 09:[address] abdomen and pelvis: Partially obstructing distal right ureter, 3 to 4 mm, moved distally but currently 1 cm proximal to the UVJ. Grossly stable mild hydronephrosis and minimal hydroureter consistent with partial ulcerative uropathy. Grossly stable appearing hepatic lesions, largest in the right lobe ne ar the dome of the diaphragm measuring 3.4 x 2.4 cm with centripetal enhancement favoring hemangioma. Smaller round hypodense lesions do not enhance, favoring cyst. Discharge Exam General Appearance: no apparent distress (Sitting up in bed and moving in bed wi thout any difficulty) Neurologic Exam: alert, oriented x 3, normal mood/affect (Dancing in bed when told could go home) Eye Exam: eyes nml inspection Respiratory Exam: normal breath sounds, No respiratory distress, No accessory muscle use Cardiovascular Exam: regular rate/rhythm, No murmur, No edema Gastrointestinal/Abdomen Exam: soft, No tenderness, No distention Final Diagnosis/Problem List - Final Discharge Diagnosis/Problem (1) Hydroureteronephrosis Current Visit: Yes Status: Acute Code(s): N13.30 - UNSPECIFIED HYDRONEPHROSIS (2) Right nephrolithiasis Current Visit: Yes Status: Acute Code(s): N20.0 - CALCULUS OF KIDNEY Telemedicine Encounter - Telemedicine Encounter Telemedicine Encounter: The entirety of this encounter was performed via Telemedicine" - Discharge Discharge Date: 10/25/22 Disposition: Home, Self-Care Condition: Good Prescriptions: New Tamsulosin HCl 0.4 mg [Flomax 0.4 MG] 0.4 mg PO DAILY #30 cap Ibuprofen 600 mg PO Q4H PRN #30 tablet PRN Reason: pain PANTOPRAZOLE 40 mg Tablet [Protonix 40MG Tablet] 40 mg PO DAILY #30 tablet Continue Lisinopril/Hydrochlorothiazide [Lisinopril-Hctz 10-12.5 mg Tab] 1 each PO QAM #30 tablet Instructions: Kidney stones in adults Additional Instructions: If possible, strain your urine and collect any kidney stones that passed to bring to the urologist. If the pain does not improve or the kidney stone does not pass within 4 weeks, follow-up with the urologist for further evaluation. Follow up with: CHARLOTTE LIRIANO PA [NON-STAFF PHY W/O PRIVILEGES] - 11/02/22 11:00 am
[2022-10-25 11:41] VITALS: BP 127/75; PULSE 82; O2SAT 96
[2022-10-25] MEDS ORDERED: Protonix 40MG Tablet PO SCH (12:00)
== END 2022-10-25 14:35 | disposition home or self-care (01) ==
LOC: ED 00:51 → MED SURG 04:40
PROVIDERS: ADMIT General Practice; ATTEND General Practice
DX: N13.30 Unspecified hydronephrosis (principal); N20.0 Calculus of kidney; K29.70 Gastritis, unspecified, without bleeding; E87.20 Acidosis, unspecified; I10 Essential (primary) hypertension; Z72.0 Tobacco use; Z20.828 Contact with and (suspected) exposure to other viral communicable diseases; Z79.899 Other long term (current) drug therapy
CPT/HCPCS: 36000; 36415; 51702; 74176; 74177; 80047; 80048; 80053; 80307; 81001; 83605; 85025; 85027; 96365; 96367; 96374; 96375; 96376; 99285; Q3014; J1170; J1956; J2270; J2405; A9270-GY; J3370

== ENCOUNTER 2022-10-30 14:20 | Emergency (ER) | payer OTHER ==
--- NOTE | 2022-10-30 14:22 | ERPHSYRPT ---
- History of Present Illness Time Seen by Provider: 10/30/22 14:22 Historian: patient, EMS Exam Limitations: no limitations Physician History: This is a 46-year-old white female patient who has chest pain that is sharp in a bandlike fashion bilateral anterior chest without other areas of radiation and associated intermittent high blood pressure in the last 2 days. Patient is a daily smoker of cigarettes. She states she is under a lot of stress at this time. She feels as though she is responsible for multiple issues that are in her family and she is having a bit of difficulty coping. Patient has a history of hypertension, gastroesophageal reflux disease, irritable bowel syndrome, anxiety and fibromyalgia. Timing/Duration: day(s) (2) Activities at Onset: none Quality: sharpness (Bandlike fashion anterior) Chest Pain Radiation: no radiation ( mid chest bilaterally) Severity of Pain-Max: mild (To moderate) Severity of Pain-Current: mild Modifying Factors: Improves With: nothing Associated Symptoms: denies symptoms Prior Chest Pain/Cardiac Workup: no prior chest pain, no prior cardiac workup Nitro Today/Relief: no nitro taken today Aspirin Treatment Today: 81 mg x 4, provided by ED Allergies/Adverse Reactions: erythromycin base Allergy (Unknown, Verified 10/23/22 01:25) Penicillins Allergy (Unknown, Verified 10/23/22 01:25) Hx Tetanus, Diphtheria Vaccination/Date Given: Yes Hx Influenza Vaccination/Date Given: No Hx Pneumococcal Vaccination/Date Given: No Travel Risk - International Travel Have you traveled outside of the country in past 3 weeks: No - Coronavirus Screening Are you exhibiting any of the following symptoms?: No Close contact with a COVID-19 positive Pt in past 14-21 Days: No - Vaccine Status Have you recieved a Covid-19 vaccination: No - Review of Systems Constitutional: No Symptoms Eyes: No Symptoms Ears, Nose, & Throat: No Symptoms Respiratory: No Symptoms Cardiac: Chest Pain Abdominal/Gastrointestinal: No Symptoms Genitourinary Symptoms: No Symptoms Musculoskeletal: No Symptoms Skin: No Symptoms Neurological: No Symptoms Psychological: No Symptoms Endocrine: No Symptoms Hematologic/Lymphatic: No Symptoms Immunological/Allergic: No Symptoms All Other Systems: Reviewed and Negative - Past Medical History Pertinent Past Medical History: Yes Neurological History: No Pertinent History ENT History: No Pertinent History Cardiac History: Hypertension Respiratory History: No Pertinent History Endocrine Medical History: No Pertinent History Musculoskeletal History: No Pertinent History GI Medical History: Gallbladder Disease, Irritable Bowel History: No Pertinent History Psycho-Social History: Anxiety, Depression Female Reproductive Disorders: No Pertinent History Other Medical History: fibromyaglia - Past Surgical History Past Surgical History: Yes Neuro Surgical History: No Pertinent History Cardiac: No Pertinent History Respiratory: No Pertinent History Gastrointestinal: Cholecystectomy Musculoskeletal: Orthopedic Surgery Female Surgical History: Hysterectomy Other Surgical History: left knee - Social History Smoking Status: Current every day smoker How long have you smoked: 33 yrs Exposure to second hand smoke: No Drug Use: marijuana Patient Lives Alone: No Significant Family History: no pertinent family hx - Nursing Vital Signs Nursing Vital Signs: Initial Vital Signs Temperature 97.8 F 10/30/22 14:29 Pulse Rate 62 10/30/22 14:29 Respiratory Rate 20 10/30/22 14:29 Blood Pressure 198/119 10/30/22 14:29 O2 Sat by Pulse Oximetry 99 10/30/22 14:29 Pain Scale Pain Intensity 3 - Physical Exam General Appearance: no apparent distress, alert, anxiety Eye Exam: PERRL/EOMI, eyes nml inspection Ears, Nose, Throat Exam: normal ENT inspection, moist mucous membranes Neck Exam: normal inspection, non-tender, supple, full range of motion Respiratory Exam: normal breath sounds, chest tenderness, lungs clear, airway intact, No respiratory distress Cardiovascular Exam: regular rate/rhythm, normal heart sounds, normal peripheral pulses Gastrointestinal/Abdomen Exam: soft, normal bowel sounds, No tenderness Rectal Exam: not done Back Exam: normal inspection, normal range of motion, No CVA tenderness, No vertebral tenderness Extremity Exam: normal inspection, normal range of motion, pelvis stable Neurologic Exam: alert, oriented x 3, cooperative, construction code administrator II-XII nml as tested, nml cerebellar function, nml station & gait, sensation nml, depressed mood/affect, other (Very anxious) Skin Exam: normal color, warm, dry Lymphatic Exam: No adenopathy SpO2 Interpretation: normal O2 Delivery: Room Air - Course Nursing assessment & vital signs reviewed: Yes EKG Interpreted by Me: RATE (61), Sinus Rhythm, NORMAL AXIS, NORMAL INTERVALS, NORMAL QRS, NORMAL ST-T, Other (No acute ischemic changes on today's twelve-lead EKG.) Ordered Tests: Active Orders 24 hr Category Date Time Status Senior Solutions Engineer STAT Care 10/30/22 14:46 Active EKG-ER Only STAT Care 10/30/22 14:45 Active IV Insertion STAT Care 10/30/22 14:45 Active Pulse Oximetry (ED) STAT Care 10/30/22 14:45 Active CHEST 1 VIEW (PORTABLE) Stat Exams 10/30/22 14:45 Completed CBC W DIFF Stat Lab 10/30/22 14:45 Completed CMP Stat Lab 10/30/22 15:22 Completed D-DIMER QUANTITATIVE Stat Lab 10/30/22 15:22 Completed NT PRO BNPII Stat Lab 10/30/22 15:22 Completed TROPONIN Q4H Lab 10/30/22 15:22 Completed TROPONIN Q4H Lab 10/30/22 19:05 Completed TROPONIN Q4H Lab 10/30/22 22:45 Ordered Medication Summary Discontinued Medications Generic Name Dose Route Start Last Admin Trade Name Freq PRN Reason Stop Dose Admin Aspirin 324 mg 10/30/22 14:45 10/30/22 14:58 Aspirin 81 Mg Tab.Chew PO 10/30/22 14:46 324 mg STAT ONE Administration Aspirin Confirm 10/30/22 14:54 Aspirin 81 Mg Tab.Chew Administered 10/30/22 14:55 Dose 324 mg .ROUTE .STK-MED ONE Enalaprilat 0.625 mg 10/30/22 14:47 10/30/22 14:59 Enalaprilat 2.5 Mg Injection IV 10/30/22 14:48 0.625 mg STAT ONE Administration Enalaprilat Confirm 10/30/22 14:54 Enalaprilat 2.5 Mg Injection Administered 10/30/22 14:55 Dose 2.5 mg IV .STK-MED ONE Enalaprilat 1.25 mg 10/30/22 19:38 10/30/22 19:47 Enalaprilat 2.5 Mg Injection IV 10/30/22 19:39 1.25 mg STAT ONE Administration Enalaprilat Confirm 10/30/22 19:45 Enalaprilat 2.5 Mg Injection Administered 10/30/22 19:46 Dose 2.5 mg IV .STK-MED ONE Enoxaparin Sodium 80 mg 10/30/22 21:37 10/30/22 21:43 Enoxaparin Sodium 80 Mg/0.8 Ml Syringe SQ 10/30/22 21:38 80 mg STAT ONE Administration Enoxaparin Sodium Confirm 10/30/22 21:43 Enoxaparin Sodium 80 Mg/0.8 Ml Syringe Administered 10/30/22 21:44 Dose 80 mg SQ .STK-MED ONE Lorazepam 1 mg 10/30/22 14:46 10/30/22 15:00 Lorazepam 2 Mg/1 Ml 2 Mg Vial IV 10/30/22 14:47 1 mg STAT ONE Administration Lorazepam Confirm 10/30/22 14:54 Lorazepam 2 Mg/1 Ml 2 Mg Vial Administered 10/30/22 14:55 Dose 2 mg .ROUTE .STK-MED ONE Morphine Sulfate 2 mg 10/30/22 14:46 10/30/22 14:59 Morphine Sulfate 2 Mg/Ml Inj IV 10/30/22 14:47 2 mg STAT ONE Administration Morphine Sulfate Confirm 10/30/22 14:55 Morphine Sulfate 2 Mg/Ml Inj Administered 10/30/22 14:56 Dose 2 mg .ROUTE .STK-MED ONE Nitroglycerin 1 gm 10/30/22 20:13 10/30/22 20:24 Nitroglycerin 1 Gm Packet TOP 10/30/22 20:14 1 gm STAT ONE Administration Nitroglycerin Confirm 10/30/22 20:23 Nitroglycerin 1 Gm Packet Administered 10/30/22 20:24 Dose 1 gm .ROUTE .STK-MED ONE Ondansetron HCl 4 mg 10/30/22 14:45 10/30/22 14:59 Ondansetron Hcl 4 Mg/2 Ml Vial IV 10/30/22 14:46 4 mg STAT ONE Administration Ondansetron HCl Confirm 10/30/22 14:53 Ondansetron Hcl 4 Mg/2 Ml Vial Administered 10/30/22 14:54 Dose 4 mg .ROUTE .STK-MED ONE Potassium Chloride 20 meq 10/30/22 16:36 10/30/22 16:59 Potassium Chloride Tab 10 Meq Tab PO 10/30/22 16:37 20 meq STAT ONE Administration Potassium Chloride Confirm 10/30/22 16:58 Potassium Chloride Tab 10 Meq Tab Administered 10/30/22 16:59 Dose 20 meq PO .STK-MED ONE Lab/Rad Data: Laboratory Result Diagrams 10/30/22 14:45 10/30/22 15:22 Laboratory Results 10/30/22 10/30/22 10/30/22 Range/Units 19:05 15:22 15:22 WBC (4.0-10.5) x10^3/uL RBC (4.1-5.4) x10^6/uL Hgb (12.0-16.0) g/dL Hct (35-47) % MCV (78-100) fL MCH (26-32) pg MCHC (32-36) g/dL RDW (11.5-14.0) % Plt Count (150-450) x10^3/uL MPV (7.5-11.0) fL Gran % (36.0-66.0) % Immature Gran % (Auto) (0.00-0.4) % Nucleat RBC Rel Count (0.00-0.1) % Eos # (Auto) (0-0.5) x10^3/uL Immature Gran # (Auto) (0.00-0.03) x10^3u/L Absolute Lymphs (auto) (1.0-4.6) x10^3/uL Absolute Monos (auto) (0.0-1.3) x10^3/uL Absolute Nucleated RBC (0.00-0.01) x10^3u/L Lymphocytes % (24.0-44.0) % Monocytes % (0.0-12.0) % Eosinophils % (0.00-5.0) % Basophils % (0.0-0.4) % Absolute Granulocytes (1.4-6.9) x10^3/uL Basophils # (0-0.4) x10^3/uL D-Dimer 0.51 H (0.0-0.50) mg/L Sodium (137-145) mmol/L Potassium (3.5-5.1) mmol/L Chloride (98-107) mmol/L Carbon Dioxide (22-30) mmol/L Anion Gap (5-15) MEQ/L BUN (7-17) mg/dL Creatinine (0.52-1.04) mg/dL Estimated GFR ML/MIN Glucose (74-106) mg/dL Calcium (8.4-10.2) mg/dL Total Bilirubin (0.2-1.3) mg/dL AST (14-36) U/L ALT (0-35) U/L Alkaline Phosphatase (38-126) U/L Troponin I 0.287 H* (0.000-0.034) ng/mL NT-Pro-B Natriuret Pep 369 (<300) pg/mL Serum Total Protein (6.3-8.2) g/dL Albumin (3.5-5.0) g/dL 10/30/22 10/30/22 Range/Units 15:22 14:45 WBC 11.0 H (4.0-10.5) x10^3/uL RBC 4.50 (4.1-5.4) x10^6/uL Hgb 13.2 (12.0-16.0) g/dL Hct 40.2 (35-47) % MCV 89.3 (78-100) fL MCH 29.3 (26-32) pg MCHC 32.8 (32-36) g/dL RDW 12.9 (11.5-14.0) % Plt Count 291 (150-450) x10^3/uL MPV 10.1 (7.5-11.0) fL Gran % 59.7 (36.0-66.0) % Immature Gran % (Auto) 0.5 H (0.00-0.4) % Nucleat RBC Rel Count 0.0 (0.00-0.1) % Eos # (Auto) 0.53 H (0-0.5) x10^3/uL Immature Gran # (Auto) 0.05 H (0.00-0.03) x10^3u/L Absolute Lymphs (auto) 3.01 (1.0-4.6) x10^3/uL Absolute Monos (auto) 0.78 (0.0-1.3) x10^3/uL Absolute Nucleated RBC 0.00 (0.00-0.01) x10^3u/L Lymphocytes % 27.4 (24.0-44.0) % Monocytes % 7.1 (0.0-12.0) % Eosinophils % 4.8 (0.00-5.0) % Basophils % 0.5 (0.0-0.4) % Absolute Granulocytes 6.55 (1.4-6.9) x10^3/uL Basophils # 0.06 (0-0.4) x10^3/uL D-Dimer (0.0-0.50) mg/L Sodium 140 (137-145) mmol/L Potassium 3.3 L (3.5-5.1) mmol/L Chloride 104 (98-107) mmol/L Carbon Dioxide 29 (22-30) mmol/L Anion Gap 9.8 (5-15) MEQ/L BUN 12 (7-17) mg/dL Creatinine 0.58 (0.52-1.04) mg/dL Estimated GFR > 60.0 ML/MIN Glucose 107 H (74-106) mg/dL Calcium 8.9 (8.4-10.2) mg/dL Total Bilirubin 0.40 (0.2-1.3) mg/dL AST 20 (14-36) U/L ALT 18 (0-35) U/L Alkaline Phosphatase 83 (38-126) U/L Troponin I 0.068 H* (0.000-0.034) ng/mL NT-Pro-B Natriuret Pep (<300) pg/mL Serum Total Protein 6.8 (6.3-8.2) g/dL Albumin 3.9 (3.5-5.0) g/dL - Progress Progress: improved, re-examined Air Movement: good Progress Note: 10/30/22 15:16 Chest x-ray was interpreted by the radiologist and I reviewed the impression. No evidence of any acute cardiopulmonary process. 10/30/22 20:08 Second twelve-lead EKG performed today 10/30/2022 at 1920 again she has normal sinus rhythm heart rate of 62 bpm. The computer result reads borderline T abnormalities in the anterior leads. However I do not appreciate any acute ischemic changes. It is not significantly different between the earlier twelve- lead EKG. 10/30/22 20:13 Repeat examination showed the patient resting comfortably and resolution of her chest pain. However she remained to have a systolic blood pressure in the 170s and the diastolic blood pressure in the 100s. I gave her a second dose of IV Vasotec 1.25 mg and placed Nitropaste on her as well. The twelve-lead EKG at 4 hours was as stated above. I do not appreciate any kind of acute ischemic changes and the second twelve-lead EKG does not appear to be much different than the first 1 that was performed. However the troponin increased significantly from [id number]. We will need to transfer this patient. We have placed a call into [facility]. This patient's medical issue is 1 of high complexity. The level of complexity and the work-up performed is based on review of the patient's past medical history, review of the patient's medication list, review of the patient's drug allergy list, history of present illness and physical findings on examination. The work-up includes CBC, CMP, troponin, D-dimer, twelve-lead EKG and chest x- ray. We also placed an intravenous line and provided her with IV Vasotec, Ativan and morphine 2 mg with Zofran 4 mg intravenously. This improved her chest pain and actually resolved per her report. She was able to rest and sleep without chest discomfort. However she maintained a systolic blood pressure that was elevated as stated above. Despite resolution of her chest pain she also had an increase in her troponin that was significant from 0.068-0.287. Patient will require transport/transfer to a facility where there is a career services director. 10/30/22 21:46 The first hospital we contacted [facility] emergency department. Dr. Torres did not want to accept the patient until we did a third troponin and third twelve-lead EKG to make sure the troponin was leveling off and there were no new twelve-lead EKG changes. [facility] did not have cardiac catheterization services until 11/01/2022. I think this is completely reasonable to decline the transfer. [facility] were only excepting stroke and STEMI patients. We then provided the patient with Lovenox and waited for [facility] to return our call. I spoke with both the career services director (I did not understand this patient's name) and I believe it was a Dr. [facility]'s hospitalist on. I reviewed the above-stated patient's history, physical findings, twelve-lead EKG report, results of the laboratory studies as well as the x-ray findings. I informed him of my intervention. They accept the patient in transfer. Blood Culture(s) Obtained: No Antibiotics given: No Counseled pt/family regarding: lab results, diagnosis, need for follow-up, rad results Medical Desision Making - Diagnostic Testing Diagnostic test were ordered, analyzed, and reviewed by me: Yes Radiological Interpretation: Reviewed by me, Teleradiologist Report - Risk of complications The pt has a high risk of morbidity or mortality based on: Decision regarding hospitilization or escalation of hosp level of care - Departure Departure Disposition: Transfer Clinical Impression: Chest pain, Hypertension, Elevated troponin, NSTEMI (non-ST elevated myocardial infarction) Condition: Stable Critical Care Time: Yes Critical Care Time(excluding separately billable procedures): Critical 30-74 mins (50 minutes) Referrals: DOCTOR,NO FAMILY [NON-STAFF PHY W/O PRIVILEGES] - Follow up/PCP as directed
[2022-10-30] MEDS ORDERED: BABY ASPIRIN 81 MG CHEW PO ONE (14:45)
[2022-10-30] MEDS ORDERED: Zofran 4 MG/2 ML VIAL IV ONE (14:45)
[2022-10-30] MEDS ORDERED: Ativan 2 MG/1 ML VIAL IV ONE (14:46)
[2022-10-30] MEDS ORDERED: MORPHINE SULFATE 2 MG INJ IV ONE (14:46)
[2022-10-30] MEDS ORDERED: ENALAPRILAT 2.5 MG INJECTION IV ONE ×4 (14:47→19:45)
[2022-10-30] MEDS ORDERED: Zofran 4 MG/2 ML VIAL ONE (14:53)
[2022-10-30] MEDS ORDERED: Ativan 2 MG/1 ML VIAL ONE (14:54)
[2022-10-30] MEDS ORDERED: BABY ASPIRIN 81 MG CHEW ONE (14:54)
[2022-10-30] MEDS ORDERED: MORPHINE SULFATE 2 MG INJ ONE (14:55)
--- NOTE | 2022-10-30 15:10 | XRAY ---
Indication: Chest pain. Comparison: August 05, 2019 Portable apical lordotic chest remains inflated and clear. Heart not enlarged. Bony thorax intact. No new/acute findings.
[2022-10-30 15:27] LABS: Absolute Neutrophil Ct (ANC) 6.55 x10^3/uL (1.4-6.9); BASOPHIL % 0.5 % (0.0-0.4); Basophil (Absolute #) 0.06 x10^3/uL (0-0.4); Eosinophil % 4.8 % (0.00-5.0); Eosinophil (Absolute #) 0.53 x10^3/uL (0-0.5); Hematocrit 40.2 % (35-47); Hemoglobin 13.2 g/dL (12.0-16.0); IMMATURE GRAN # 0.05 x10^3u/L (0.00-0.03); IMMATURE GRAN % 0.5 % (0.00-0.4); Lymphocyte (Absolute #) 3.01 x10^3/uL (1.0-4.6); Lymphocytes % 27.4 % (24.0-44.0); Mean Cell Volume 89.3 fL (78-100); Mean Corpuscular Hemoglobin 29.3 pg (26-32); Mean Corpuscular Hgb Concent. 32.8 g/dL (32-36); Mean Platelet Volume 10.1 fL (7.5-11.0); Monocyte (Absolute #) 0.78 x10^3/uL (0.0-1.3); Monocytes % 7.1 % (0.0-12.0); Neutrophil % 59.7 % (36.0-66.0); Platelet Count 291 x10^3/uL (150-450); Red Cell Distribution Width 12.9 % (11.5-14.0)
[2022-10-30 15:53] LABS: ALBUMIN 3.9 g/dL (3.5-5.0); ALKALINE PHOSPHATASE 83 U/L (38-126); ANION GAP 9.8 MEQ/L (5-15); BLOOD UREA NITROGEN 12 mg/dL (7-17); CHLORIDE 104 mmol/L (98-107); Calcium 8.9 mg/dL (8.4-10.2); Carbon Dioxide 29 mmol/L (22-30); Creatinine 1 0.58 mg/dL (0.52-1.04); EST GLOMERULAR FILTRATION RATE > 60.0 ML/MIN; Glucose 107 mg/dL (74-106); Potassium 3.3 mmol/L (3.5-5.1); SGOT/AST 20 U/L (14-36); SGPT/ALT 18 U/L (0-35); SODIUM 140 mmol/L (137-145); Total Protein 6.8 g/dL (6.3-8.2)
[2022-10-30 16:16] LABS: TROPONIN 0.068 ng/mL (0.000-0.034)
[2022-10-30] MEDS ORDERED: Klor Con PO ONE ×2 (16:36→16:58)
[2022-10-30] MEDS ORDERED: NITRO-BID 2% UD PACKETS TOP ONE (20:13)
[2022-10-30] MEDS ORDERED: NITRO-BID 2% UD PACKETS ONE (20:23)
[2022-10-30] MEDS ORDERED: ENOXAPARIN SODIUM SQ ONE ×2 (21:37→21:43)
[2022-10-31 00:15] VITALS: BP 144/89; PULSE 95; O2SAT 98
== END 2022-10-31 00:11 | disposition short-term general hospital (02) ==
LOC: ED 14:20
DX: I21.4 Non-ST elevation (NSTEMI) myocardial infarction (principal); R07.9 Chest pain, unspecified; I10 Essential (primary) hypertension; R77.8 Other specified abnormalities of plasma proteins; Z28.310 Unvaccinated for COVID-19; Z72.0 Tobacco use
CPT/HCPCS: 36000; 36415; 71045; 80053; 83880; 84484; 85025; 85379; 93005; 93041; 94760; 96372; 96374; 96375; 96376; 99285; 99291; J1650; J2060; J2270; J2405; A9270-GY

== ENCOUNTER 2023-04-15 14:02 | Emergency (ER) | payer OTHER ==
[2023-04-15 14:55] VITALS: RESP 20; TEMP 98.2
[2023-04-15] MEDS ORDERED: Reglan 10 MG/2 ML IV ONE (14:58)
[2023-04-15] MEDS ORDERED: Sodium Chloride 0.9% 1000 ML 1,000 ML IV STA (14:58)
--- NOTE | 2023-04-15 15:04 | ERPHSYRPT ---
- History of Present Illness Time Seen by Provider: 04/15/23 15:00 Historian: patient Exam Limitations: no limitations Patient Subjective Stated Complaint: Weakness Triage Nursing Assessment: Patient brought into ED per w/c and transferred self to bed. Patient A+O x3. Patient's skin pink, warm and dry. Patient complains of increased weakness for the past few weeks. Patient states she had Covid 3 weeks ago and has been feeling bad every since. Patient also complains of constipation and N/V. Physician History: 47 years old female with past medical history of lupus, history of coronary artery disease diagnosed in October of this year status post cardiac cath but no stents were placed. Had the COVID infection 3 weeks ago. The patient is presenting to the emergency room complaining of generalized weakness and feeling dehydrated, Requesting some IV fluid. The patient stated that she has been constipated for the last couple of days, she has taken over the shelf laxatives. She vomited 1 time at around 2 AM and later had a large loose bowel movement. Initially she was having abdominal pain, her abdominal pain improved a lot after the lose bowel movement. She denies any urinary symptoms she has history of hysterectomy, Cholecystectomy appendectomy. She has the fever and chills, no sore throat, no earache, no coughing, no chest pain or shortness of breath. Allergies/Adverse Reactions: erythromycin base Allergy (Unknown, Verified 04/15/23 14:49) Penicillins Allergy (Unknown, Verified 04/15/23 14:49) Hx Tetanus, Diphtheria Vaccination/Date Given: Yes Hx Influenza Vaccination/Date Given: No Hx Pneumococcal Vaccination/Date Given: No Immunizations Up to Date: Yes Travel Risk - International Travel Have you traveled outside of the country in past 3 weeks: No - Coronavirus Screening Are you exhibiting any of the following symptoms?: No Close contact with a COVID-19 positive Pt in past 14-21 Days: No - Vaccine Status Have you recieved a Covid-19 vaccination: No - Review of Systems Constitutional: Fever, Chills, Weakness Eyes: No Symptoms Ears, Nose, & Throat: No Symptoms Respiratory: No Cough, No Dyspnea Cardiac: No Chest Pain, No Edema, No Syncope Abdominal/Gastrointestinal: Nausea, Vomiting, Diarrhea Genitourinary Symptoms: No Dysuria Musculoskeletal: No Back Pain, No Neck Pain Skin: No Rash Neurological: No Dizziness, No Focal Weakness, No Sensory Changes Psychological: No Symptoms Endocrine: No Symptoms All Other Systems: Reviewed and Negative - Past Medical History Pertinent Past Medical History: Yes Neurological History: No Pertinent History ENT History: No Pertinent History Cardiac History: Hypertension Respiratory History: No Pertinent History Endocrine Medical History: No Pertinent History Musculoskeletal History: No Pertinent History GI Medical History: Gallbladder Disease, Irritable Bowel History: No Pertinent History Psycho-Social History: Anxiety, Depression Female Reproductive Disorders: No Pertinent History Other Medical History: fibromyaglia - Past Surgical History Past Surgical History: Yes Neuro Surgical History: No Pertinent History Cardiac: No Pertinent History Respiratory: No Pertinent History Gastrointestinal: Cholecystectomy Musculoskeletal: Orthopedic Surgery Female Surgical History: Hysterectomy Other Surgical History: left knee - Social History Smoking Status: Current every day smoker How long have you smoked: 33 yrs Exposure to second hand smoke: No Drug Use: marijuana Patient Lives Alone: No Significant Family History: no pertinent family hx - Female History Hx Last Menstrual Period: hysterectomy Hx Now: No - Nursing Vital Signs Nursing Vital Signs: Initial Vital Signs Temperature 98.2 F 04/15/23 14:49 Pulse Rate 106 H 04/15/23 14:49 Respiratory Rate 20 04/15/23 14:49 Blood Pressure 110/84 04/15/23 14:49 O2 Sat by Pulse Oximetry 97 04/15/23 14:49 Pain Scale Pain Intensity 3 - Physical Exam General Appearance: no apparent distress, alert Eye Exam: PERRL/EOMI, eyes nml inspection, No scleral icterus Ears, Nose, Throat Exam: normal ENT inspection, pharynx normal, moist mucous membranes Neck Exam: normal inspection, non-tender, supple, full range of motion Respiratory Exam: normal breath sounds, lungs clear, No respiratory distress Cardiovascular Exam: regular rate/rhythm, normal heart sounds Gastrointestinal/Abdomen Exam: soft, tenderness, No distention, No mass, No guarding, No rebound, No organomegaly Pelvic Exam: not done Rectal Exam: deferred Back Exam: normal inspection, normal range of motion, No CVA tenderness, No vertebral tenderness Extremity Exam: normal inspection, normal range of motion, pelvis stable Neurologic Exam: alert, oriented x 3, cooperative, normal mood/affect, nml cerebellar function, sensation nml, No motor deficits Skin Exam: normal color, warm, dry SpO2: 97 - Course Nursing assessment & vital signs reviewed: Yes EKG Interpreted by Me: RATE (104), Other (Sinus tachycardia at a rate of 104 bpm, flattening of the T waves V1 through V6 no ST segment elevation or depression.) Ordered Tests: Active Orders 24 hr Category Date Time Status EKG-ER Only STAT Care 04/15/23 14:58 Active IV Insertion STAT Care 04/15/23 14:58 Active CHEST 1 VIEW (PORTABLE) Stat Exams 04/15/23 15:07 Taken CBC W DIFF Stat Lab 04/15/23 15:06 Completed CMP Stat Lab 04/15/23 15:06 Completed LIPASE Stat Lab 04/15/23 15:06 Completed TROPONIN Q4H Lab 04/15/23 15:06 Completed TROPONIN Q4H Lab 04/15/23 19:00 Ordered TROPONIN Q4H Lab 04/15/23 23:00 Ordered UA W/RFX UR CULTURE Stat Lab 04/15/23 16:33 Completed Medication Summary Discontinued Medications Generic Name Dose Route Start Last Admin Trade Name Freq PRN Reason Stop Dose Admin Sodium Chloride 1,000 mls @ 999 mls/hr 04/15/23 14:58 04/15/23 16:20 Sodium Chloride 0.9% 1000 Ml IV 04/15/23 15:58 Infused .Q1H1M STA Infusion Sodium Chloride Confirm 04/15/23 15:07 Sodium Chloride 0.9% 1000 Ml Administered 04/15/23 15:08 Dose 1,000 mls @ ud .ROUTE .STK-MED ONE Metoclopramide HCl 10 mg 04/15/23 14:58 04/15/23 15:17 Metoclopramide Hcl 10 Mg/2 Ml Vial IV 04/15/23 14:59 10 mg STAT ONE Administration Metoclopramide HCl Confirm 04/15/23 15:07 Metoclopramide Hcl 10 Mg/2 Ml Vial Administered 04/15/23 15:08 Dose 10 mg .ROUTE .STK-MED ONE Lab/Rad Data: Laboratory Result Diagrams 04/15/23 15:06 04/15/23 15:06 Laboratory Results 04/15/23 04/15/23 04/15/23 Range/Units 16:33 15:06 15:06 WBC (4.0-10.5) x10^3/uL RBC (4.1-5.4) x10^6/uL Hgb (12.0-16.0) g/dL Hct (35-47) % MCV (78-100) fL MCH (26-32) pg MCHC (32-36) g/dL RDW (11.5-14.0) % Plt Count (150-450) x10^3/uL MPV (7.5-11.0) fL Gran % (36.0-66.0) % Immature Gran % (Auto) (0.00-0.4) % Nucleat RBC Rel Count (0.00-0.1) % Eos # (Auto) (0-0.5) x10^3/uL Immature Gran # (Auto) (0.00-0.03) x10^3u/L Absolute Lymphs (auto) (1.0-4.6) x10^3/uL Absolute Monos (auto) (0.0-1.3) x10^3/uL Absolute Nucleated RBC (0.00-0.01) x10^3u/L Lymphocytes % (24.0-44.0) % Monocytes % (0.0-12.0) % Eosinophils % (0.00-5.0) % Basophils % (0.0-0.4) % Absolute Granulocytes (1.4-6.9) x10^3/uL Basophils # (0-0.4) x10^3/uL Sodium 138 (137-145) mmol/L Potassium 3.7 (3.5-5.1) mmol/L Chloride 105 (98-107) mmol/L Carbon Dioxide 21 L (22-30) mmol/L Anion Gap 15.9 H (5-15) MEQ/L BUN 15 (7-17) mg/dL Creatinine 0.61 (0.52-1.04) mg/dL Estimated GFR 109.5 ML/MIN Glucose 129 H (74-106) mg/dL Calcium 9.6 (8.4-10.2) mg/dL Total Bilirubin 1.00 (0.2-1.3) mg/dL AST 16 (14-36) U/L ALT 12 (0-35) U/L Alkaline Phosphatase 91 (38-126) U/L Troponin I < 0.012 (0.000-0.034) ng/mL Serum Total Protein 7.9 (6.3-8.2) g/dL Albumin 4.5 (3.5-5.0) g/dL Lipase 31 (23-300) U/L Urine Color Yellow (Yellow) Urine Appearance Cloudy A (Clear) Urine pH 5.5 (4.6-8.0) Ur Specific [place] 1.025 (1.005-1.030) Urine Protein 30 (Negative) Urine Glucose (UA) Negative (Negative) mg/dL Urine Ketones 40 A (Negative) Urine Blood Trace (Negative) Urine Nitrite Negative (Negative) Urine Bilirubin Negative (Negative) Urine Urobilinogen 0.2 (0.2) mg/dL Ur Leukocyte Esterase Negative (Negative) U Hyaline Cast (Auto) 11-20 (0-2) /LPF Urine Microscopic RBC 3-5 (0-5) /HPF Urine Microscopic WBC 0-2 (0-5) /HPF Ur Epithelial Cells Rare (None Seen) /HPF Urine Bacteria None Seen (None Seen) /HPF Urine Culture Reflexed NO (NO) 04/15/23 Range/Units 15:06 WBC 12.5 H (4.0-10.5) x10^3/uL RBC 5.06 (4.1-5.4) x10^6/uL Hgb 14.7 (12.0-16.0) g/dL Hct 44.6 (35-47) % MCV 88.1 (78-100) fL MCH 29.1 (26-32) pg MCHC 33.0 (32-36) g/dL RDW 12.9 (11.5-14.0) % Plt Count 280 (150-450) x10^3/uL MPV 10.7 (7.5-11.0) fL Gran % 86.2 H (36.0-66.0) % Immature Gran % (Auto) 0.5 H (0.00-0.4) % Nucleat RBC Rel Count 0.0 (0.00-0.1) % Eos # (Auto) 0.04 (0-0.5) x10^3/uL Immature Gran # (Auto) 0.06 H (0.00-0.03) x10^3u/L Absolute Lymphs (auto) 0.97 L (1.0-4.6) x10^3/uL Absolute Monos (auto) 0.60 (0.0-1.3) x10^3/uL Absolute Nucleated RBC 0.00 (0.00-0.01) x10^3u/L Lymphocytes % 7.8 L (24.0-44.0) % Monocytes % 4.8 (0.0-12.0) % Eosinophils % 0.3 (0.00-5.0) % Basophils % 0.4 (0.0-0.4) % Absolute Granulocytes 10.78 H (1.4-6.9) x10^3/uL Basophils # 0.05 (0-0.4) x10^3/uL Sodium (137-145) mmol/L Potassium (3.5-5.1) mmol/L Chloride (98-107) mmol/L Carbon Dioxide (22-30) mmol/L Anion Gap (5-15) MEQ/L BUN (7-17) mg/dL Creatinine (0.52-1.04) mg/dL Estimated GFR ML/MIN Glucose (74-106) mg/dL Calcium (8.4-10.2) mg/dL Total Bilirubin (0.2-1.3) mg/dL AST (14-36) U/L ALT (0-35) U/L Alkaline Phosphatase (38-126) U/L Troponin I (0.000-0.034) ng/mL Serum Total Protein (6.3-8.2) g/dL Albumin (3.5-5.0) g/dL Lipase (23-300) U/L Urine Color (Yellow) Urine Appearance (Clear) Urine pH (4.6-8.0) Ur Specific [place] (1.005-1.030) Urine Protein (Negative) Urine Glucose (UA) (Negative) mg/dL Urine Ketones (Negative) Urine Blood (Negative) Urine Nitrite (Negative) Urine Bilirubin (Negative) Urine Urobilinogen (0.2) mg/dL Ur Leukocyte Esterase (Negative) U Hyaline Cast (Auto) (0-2) /LPF Urine Microscopic RBC (0-5) /HPF Urine Microscopic WBC (0-5) /HPF Ur Epithelial Cells (None Seen) /HPF Urine Bacteria (None Seen) /HPF Urine Culture Reflexed (NO) - Progress Progress: improved Progress Note: 04/15/23 15:04 47 years old female presenting to the emergency room complaining of generalized weakness and feeling dehydrated. She has been constipated lately taking alcr-[id number]-[id number] laxatives. At around 2 AM she felt nauseous and vomited, followed by loose large bowel movement. At present her abdominal pain is much less she is just feeling dehydrated. Emergency room course and medical decision making Patient will be given IV fluids, Reglan 10 mg IV. On arrival she had an EKG done which revealed sinus tachycardia rate [address] segment elevation or depression just borderline T abnormalities in the anterior lateral leads. Will check a CBC, CMP, lipase, UA, troponin. 04/15/23 18:45 04/15/23 18:46 , The patient received a whole bag of IV fluid and IV Reglan she is feeling much better she is hungry and wanting to go home. Her workup revealed an elevated white count of 12.5, hemoglobin 14.7, hematocrit 44.6. BUN 15, creatinine 0.6, glucose 129, sodium 138, potassium 3.7, chloride 105. Urinalysis cloudy and 40 ketones. Chest x-ray revealed no active disease. The patient at present is denying any abdominal pain, feeling better and hungry. She will be discharged home. She needs to rest increase her fluid intake. She will be given Zofran 4 mg ODT to be taken 4 times a day as needed for nausea and or vomiting. She is told to follow-up immediately if he is having any worsening abdominal pain high fever and/or vomiting. - Departure Departure Disposition: Home Clinical Impression: Vomiting, Dehydration Condition: Stable Critical Care Time: No Referrals: CHARLOTTE LIRIANO PA [Primary Care Provider] - Follow up/PCP as directed Additional Instructions: .Rest, increase fluid intake. Zofran 4 mg ODT as needed for nausea and/or vomiting. Follow-up as needed for any worsening symptoms like worsening abdominal pain, high fever, persistent vomiting Follow-up with your family physician in 1 to 2 days. Prescriptions: Ondansetron ODT 4 MG [Zofran Odt 4 mg] 4 mg PO Q6H PRN PRN #10 tablet PRN Reason: Vomiting
[2023-04-15] MEDS ORDERED: Reglan 10 MG/2 ML ONE (15:07)
[2023-04-15] MEDS ORDERED: Sodium Chloride 0.9% 1000 ML 1,000 ML ONE (15:07)
[2023-04-15 15:14] LABS: Absolute Neutrophil Ct (ANC) 10.78 x10^3/uL (1.4-6.9); BASOPHIL % 0.4 % (0.0-0.4); Basophil (Absolute #) 0.05 x10^3/uL (0-0.4); Eosinophil % 0.3 % (0.00-5.0); Eosinophil (Absolute #) 0.04 x10^3/uL (0-0.5); Hematocrit 44.6 % (35-47); Hemoglobin 14.7 g/dL (12.0-16.0); IMMATURE GRAN # 0.06 x10^3u/L (0.00-0.03); IMMATURE GRAN % 0.5 % (0.00-0.4); Lymphocyte (Absolute #) 0.97 x10^3/uL (1.0-4.6); Lymphocytes % 7.8 % (24.0-44.0); Mean Cell Volume 88.1 fL (78-100); Mean Corpuscular Hemoglobin 29.1 pg (26-32); Mean Platelet Volume 10.7 fL (7.5-11.0); Monocytes % 4.8 % (0.0-12.0); Neutrophil % 86.2 % (36.0-66.0); Platelet Count 280 x10^3/uL (150-450); Red Blood Count 5.06 x10^6/uL (4.1-5.4); Red Cell Distribution Width 12.9 % (11.5-14.0); White Blood Count 12.5 x10^3/uL (4.0-10.5)
[2023-04-15 15:30] LABS: ALBUMIN 4.5 g/dL (3.5-5.0); ANION GAP 15.9 MEQ/L (5-15); Calcium 9.6 mg/dL (8.4-10.2); Creatinine 1 0.61 mg/dL (0.52-1.04); EST GLOMERULAR FILTRATION RATE 109.5 ML/MIN; Potassium 3.7 mmol/L (3.5-5.1); Total Protein 7.9 g/dL (6.3-8.2)
[2023-04-15 17:29] LABS: Appearance Cloudy (Clear); Bacteria None Seen /HPF (None Seen); Bilirubin Negative (Negative); Blood Trace (Negative); Epithelial Cells Rare /HPF (None Seen); Glucose, Urine Negative (Negative); Ketones 40 (Negative); Leukocyte Esterase Negative (Negative); Nitrite Negative (Negative); Ph 5.5 (4.6-8.0); Protein,Urine Dip 30 (Negative); Specific Gravity 1.025 (1.005-1.030); Urobilinogen 0.2 mg/dL (0.2); WBC 0-2 /HPF (0-5)
[2023-04-15 17:30] LABS: ADD URINE CULTURE? NO (NO)
[2023-04-15 17:33] VITALS: PULSE 91
[2023-04-15 18:40] VITALS: BP 132/90; O2SAT 97
--- NOTE | 2023-04-15 19:51 | XRAY ---
Indication: Weakness. Comparison: October 30, 2022 Portable chest again demonstrates normal heart and lungs. Bony thorax intact. No new/acute findings.
== END 2023-04-15 18:58 | disposition home or self-care (01) ==
LOC: ED 14:02
DX: R11.2 Nausea with vomiting, unspecified (principal); E86.0 Dehydration; R53.1 Weakness; I10 Essential (primary) hypertension; Z28.310 Unvaccinated for COVID-19; Z72.0 Tobacco use
CPT/HCPCS: 36000; 36415; 71045; 80053; 81001; 83690; 84484; 85025; 93005; 96374; 99284